=== PATIENT | male | born 1960 | race Caucasian/White ===

== ENCOUNTER 2016-12-11 18:08 | Inpatient (IN) | payer MEDICAID ==
[~2016-12-11] VITALS: Ht 180.3 cm; Wt 148.8 kg
[~2016-12-11 18:08] MED LIST: ACET500C38 PO; ALBU2.5V7 INH; CARV6.2554 PO; FURO-149 PO; FURO80TA3 PO; HYDR-3924 PO; IPRA0.2S6 INH; LISI10TA5 PO; METF1000 PO; MODA100T5 PO; POTA20TA83 PO; SPIR25TA PO; glipizide PO
[2016-12-11] MEDS ORDERED: NS 500 ML IV SCH (18:23)
[2016-12-11] MEDS ORDERED: ONDANSETRON HCL 4 MG/2 ML VIAL IVP ONE (18:30)
[2016-12-11] MEDS ORDERED: IPRATROPIUM/ALBUTEROL SULFATE 3 ML AMPUL.NEB INH ONE (18:30)
[2016-12-11] MEDS ORDERED: MORPHINE 4 MG/ML INJ. SYRINGE IVP ONE (18:30)
[2016-12-11 18:52] LABS: BASOPHILS # (AUTO) 0.1 K/uL (0.0-0.2); BASOPHILS % (AUTO) 0.5 % (0.0-2.0); EOSINOPHILS # (AUTO) 0.2 K/uL (0.0-0.4); HEMATOCRIT 39.7 % (36-54); LYMPHOCYTES # (AUTO) 2.2 K/uL (1.0-5.5); LYMPHOCYTES % (AUTO) 12.2 % (20.5-51.5); MEAN CORPUSCULAR HEMOGLOBIN 29 pg (27-31); MEAN CORPUSCULAR HGB CONC 33 % (32-36); MEAN CORPUSCULAR VOLUME 88 fL (79.0-98.0); MONOCYTES # (AUTO) 1.7 K/uL (0.0-1.0); MONOCYTES % (AUTO) 9.5 % (1.7-9.3); NEUTROPHILS # (AUTO) 13.6 K/uL (1.8-7.7); NEUTROPHILS % (AUTO) 76.8 % (40.0-70.0); PLATELET COUNT (AUTO) 286 K/uL (130-430); RED BLOOD CELL COUNT(AUTO) 4.49 MIL/uL (4.2-6.2); RED CELL DISTRIBUTION WIDTH 12.1 % (9.0-15.0); WHITE BLOOD COUNT (AUTO) 17.8 K/uL (4.8-10.8)
[2016-12-11 18:58] LABS: CALCIUM 9.3 mg/dL (8.4-11.0); CREATININE 1.24 mg/dL (0.55-1.30); POTASSIUM 4.2 mmol/L (3.5-5.1)
[2016-12-11 19:03] LABS: ALBUMIN 3.5 g/dL (3.4-4.8); TOTAL BILIRUBIN 0.7 mg/dL (0.0-1.0)
[2016-12-11 19:15] LABS: BLOOD GAS PH 7.329 (7.350-7.450)
[2016-12-11 19:16] LABS: ABG TOTAL HEMOGLOBIN 13.8 G/dL (12.0-18.0); BLOOD GAS BASE EXCESS -0.8 mmol/L (-3.0-3.0)
[2016-12-11 19:17] LABS: BLOOD GAS COHb% 0.9 % (0.5-1.5); BLOOD GAS HHB 16.3 % (0.0-6.0); BLOOD O2Hb% 82.3 % (94.0-97.0)
[2016-12-11] MEDS ORDERED: IOHEXOL 350 mgI/mL, 150 ML INFUS..BTL IV ONE (19:30)
[2016-12-11] MEDS ORDERED: methylPREDNISolone SOD SUCC/PF 62.5 MG/ML VIAL IVP ONE (19:30)
[2016-12-11] MEDS ORDERED: NACL 0.9% 1,000 ML IV ONE ×4 (19:45)
[2016-12-11] MEDS ORDERED: ALBMDI INH (19:50)
[2016-12-11] MEDS ORDERED: SPIRIVA INH (19:50)
[2016-12-11] MEDS ORDERED: LIP20 PO (19:50)
[2016-12-11] MEDS ORDERED: [UNRECOGNIZED DRUG - CODE] EACH EYE (19:50)
[2016-12-11] MEDS ORDERED: FLUT1DIS5 INH (19:50)
[2016-12-11] MEDS ORDERED: VITD2000 PO (19:50)
[2016-12-11] MEDS ORDERED: DORZ10DR8 EACH EYE (19:50)
[2016-12-11] MEDS ORDERED: GABA-531 PO (19:50)
[2016-12-11] MEDS ORDERED: DOCU-144 PO (19:50)
[2016-12-11] MEDS ORDERED: IPRATROPIUM BROM 0.5 MG/2.5 ML VIAL.NEB (ATROVENT) INH PRN (21:30)
[2016-12-11] MEDS ORDERED: ALBUTEROL SULFATE 0.083% 2.5 MG/3 ML VIAL.NEB INH PRN (21:30)
[2016-12-11 21:44] VITALS: BP_SYST 104
[2016-12-11] MEDS ORDERED: DEXTROSE 50% JECT 50 ML DISP.SYRIN IVP PRN (21:45)
[2016-12-11 21:52] VITALS: BP_SYST 103
[2016-12-11] MEDS ORDERED: PIPERACILLIN/TAZOBACTAM 3.375 GM/VIAL (ZOSYN) IV ONE (22:36)
[2016-12-11] MEDS: methylPREDNISolone SOD SUCC/PF 62.5 MG/ML VIAL IVP SCH (22:48)
[2016-12-11] MEDS: PIPERACILLIN/TAZO 3.375/DEX-IS 50 ML IV SCH (22:49)
[2016-12-11] MEDS: ALBUTEROL SULFATE 0.083% 2.5 MG/3 ML VIAL.NEB INH SCH (23:24)
[2016-12-11] MEDS: IPRATROPIUM BROM 0.5 MG/2.5 ML VIAL.NEB (ATROVENT) INH SCH (23:24)
[2016-12-12] MEDS: INSULIN REGULAR, HUMAN 100 UNITS/ML, 10 ML VIAL (novoLIN R) SUBCUT PRN ×3 (00:38→11:50)
[2016-12-12 01:34] VITALS: BP_SYST 112
[2016-12-12 03:00] VITALS: BP_SYST 115
[2016-12-12] MEDS: IPRATROPIUM BROM 0.5 MG/2.5 ML VIAL.NEB (ATROVENT) INH SCH ×3 (03:00→11:36)
[2016-12-12] MEDS: ALBUTEROL SULFATE 0.083% 2.5 MG/3 ML VIAL.NEB INH SCH ×3 (03:00→11:36)
[2016-12-12] MEDS: PIPERACILLIN/TAZO 3.375/DEX-IS 50 ML IV SCH ×2 (03:28→09:39)
[2016-12-12 04:00] VITALS: BP_SYST 100
[2016-12-12] MEDS: methylPREDNISolone SOD SUCC/PF 62.5 MG/ML VIAL IVP SCH ×2 (05:28→14:37)
[2016-12-12 08:00] VITALS: BP_SYST 112
[2016-12-12] MEDS: ENOXAPARIN SODIUM 40 MG/0.4 ML SYRINGE SUBCUT SCH ×2 (08:39→08:41)
[2016-12-12] MEDS: GABAPENTIN 300 MG CAPSULE PO SCH ×2 (08:40→14:37)
[2016-12-12] MEDS ORDERED: CARVEDILOL 6.25 MG TABLET (COREG) PO SCH (09:00)
[2016-12-12] MEDS ORDERED: TIOTROPIUM BROMIDE 18 mcg/INHALATION (CAPSULE) INH SCH (09:00)
[2016-12-12] MEDS ORDERED: POTASSIUM CHLORIDE 10 MEQ TAB.PRT.SR PO SCH (09:00)
[2016-12-12] MEDS ORDERED: DOCUSATE SODIUM 100 MG CAPSULE PO SCH (09:00)
[2016-12-12] MEDS ORDERED: LISINOPRIL 10 MG TABLET (PRINIVIL) PO SCH (09:00)
[2016-12-12] MEDS ORDERED: CHOLECALCIFEROL (VITAMIN D3) 2,000 UNIT TABLET PO SCH (09:00)
[2016-12-12] MEDS ORDERED: ATORVASTATIN 20 MG TABLET PO SCH (09:00)
[2016-12-12 12:10] VITALS: BP_SYST 136
[2016-12-12 14:55] VITALS: BP_SYST 136
== END 2016-12-12 16:00 | disposition short-term general hospital (02) | DRG 720 ==
LOC: SED 18:08 → STU 21:11
PROVIDERS: ADMIT Internal Medicine Hospice and Palliative Medicine; ATTEND Internal Medicine Hospice and Palliative Medicine
PROC: 5A09357 Assistance with Respiratory Ventilation, Less than 24 Consecutive Hours, Continuous Positive Airway Pressure (ICD-10-PCS; principal; 2016-12-12)
DX: A41.9 Sepsis, unspecified organism (principal); J96.21 Acute and chronic respiratory failure with hypoxia; J18.9 Pneumonia, unspecified organism; J44.1 Chronic obstructive pulmonary disease with (acute) exacerbation; I10 Essential (primary) hypertension; E11.9 Type 2 diabetes mellitus without complications; G47.33 Obstructive sleep apnea (adult) (pediatric); H54.41 Blindness, right eye, normal vision left eye; K80.20 Calculus of gallbladder without cholecystitis without obstruction; J44.0 Chronic obstructive pulmonary disease with (acute) lower respiratory infection; E66.9 Obesity, unspecified; Z99.81 Dependence on supplemental oxygen; Z79.899 Other long term (current) drug therapy; Z87.891 Personal history of nicotine dependence; Z68.42 Body mass index [BMI] 45.0-49.9, adult
CPT/HCPCS: 36415; 36600; 71010; 71275; 80053; 82803-TC; 82962; 83605; 83880; 84484; 85025; 87040-TC; 93005; 93306; 94640; 94660; 96361; 96365; 96375; 99291; J1650; J1815; J1956; J2270; J2405; J2543; J2930; J7030; J7040; J7060; Q9967

== ENCOUNTER 2022-08-01 12:59 | Inpatient (IN) | payer MEDICAID ==
[~2022-08-01] VITALS: Ht 182.9 cm; Wt 157.4 kg
[2022-08-01] VITALS (8 sets, daily range): BP systolic 88–120
[~2022-08-01 12:59] MED LIST changes: -ACET500C38 PO; +ALBMDI INH; -ALBU2.5V7 INH; +BRIM10DR12 EACH EYE; +DOCU-144 PO; +DORZ10DR9 EACH EYE; +ETOMIDATE 20 MG/ 10 ML VIAL (AMIDATE) ONE; +FLUT1DIS5 INH; -FURO-149 PO; -FURO80TA3 PO; +GABA-531 PO; -HYDR-3924 PO; -IPRA0.2S6 INH; +LIP20 PO; +LISI10TA29 PO; -LISI10TA5 PO; -MODA100T5 PO; +POTA-197 PO; -POTA20TA83 PO; +ROCURONIUM BROMIDE 10 MG/ML (ZEMURON) ONE; -SPIR25TA PO; +SPIRIVA INH; +VITD2000 PO
--- NOTE | 2022-08-01 12:59 | NUR ---
Placed in room 02 . Placed on medical education coordinator, blood pressure machine and pulse oximeter. To gown for exam. Side rails up. Report given to ISIDORO HARDY.
[2022-08-01] MEDS ORDERED: ETOMIDATE 20 MG/ 10 ML VIAL (AMIDATE) IVP ONE (13:00)
[2022-08-01] MEDS ORDERED: ROCURONIUM BROMIDE 10 MG/ML (ZEMURON) IV ONE (13:00)
--- NOTE | 2022-08-01 13:00 | NUR ---
Patient not known to be of DNR status.Respiratory therapy at bedside prior to placement. Size 7.5 ET tube placed by DR. ROLDAN. Cuff inflated with 10 cc air. Auscultation of breath sounds over bilateral chest wall. ET tube secured. O2 sats 99% pulse ox. PCXR ordered to check tube placement.
--- NOTE | 2022-08-01 13:00 | NUR ---
RECEIVED PT FROM ISIDORO MCGOWAN. KATJA ALS FOUND IN BED THIS MORNING NONRESPONSIVE. PT HAS WORSENING SOB AND ABDOMINAL DISTENTION X2 DAY. PARAMEDICS PLACED OGT AND BAG MASK PT PRIOR TO ARRIVAL. NORMAL S1S2 NOTED. ABDOMEN GROSSLY DISTENDED. NO BOWEL SOUNDS NOTED. SKIN INTACT. DISTAL PULSES NORMAL, SKIN WARM, INTACT. PT HAS RAC IV CATH PLACED IN FIELD. IV CATH TO LH 20G PLACED. SIDERAILS UP X2.
--- NOTE | 2022-08-01 13:05 | NUR ---
rt notes 1305 Pt got intubated by ED MD Lin, prior pt was bagged via 15L BVM. AC 20,550VT, PEEP 5, 100% FIO2. 7.5/24CM LL. CO2 detector color changed, Bilateral breath sounds heard. saturation gradually increased to 100%. will cont to monitor pt.
--- NOTE | 2022-08-01 13:08 | NUR ---
EKG COMPLETED. LABS OBTAINED.
[2022-08-01] MEDS ORDERED: IPRATROPIUM/ALBUTEROL SULFATE 3 ML AMPUL.NEB (DUONEB) INH ONE (13:15)
[2022-08-01] MEDS ORDERED: methylPREDNISolone SOD SUCC/PF 62.5 MG/ML VIAL IVP ONE (13:15)
[2022-08-01] MEDS ORDERED: PROPOFOL DRIP 100 ML IV ONE ×2 (13:30→16:51)
[2022-08-01 13:31] LABS: BASOPHILS # (AUTO) 0.1 K/uL (0.0-0.2); EOSINOPHILS # (AUTO) 0.4 K/uL (0.0-0.4); EOSINOPHILS % (AUTO) 3.1 % (0.0-4.0); HEMATOCRIT 43.7 % (36-54); LYMPHOCYTES # (AUTO) 2.5 K/uL (1.0-5.5); LYMPHOCYTES % (AUTO) 19.5 % (20.5-51.5); MEAN CORPUSCULAR HEMOGLOBIN 30 pg (27-31); MEAN CORPUSCULAR HGB CONC 32 % (32-36); MEAN CORPUSCULAR VOLUME 93 fL (79.0-98.0); MONOCYTES # (AUTO) 1.7 K/uL (0.0-1.0); MONOCYTES % (AUTO) 12.8 % (1.7-9.3); NEUTROPHILS # (AUTO) 8.3 K/uL (1.8-7.7); NEUTROPHILS % (AUTO) 63.6 % (40.0-70.0); PLATELET COUNT (AUTO) 275 K/uL (130-430); RED CELL DISTRIBUTION WIDTH 13.1 % (9.0-15.0)
[2022-08-01 13:47] LABS: CALCIUM 8.7 mg/dL (8.4-11.0); CHLORIDE 101 mmol/L (98-107); CREATININE 1.51 mg/dL (0.55-1.30); GLUCOSE 252 mg/dL (70-99); UREA NITROGEN, BLOOD 19 mg/dL (8-21)
[2022-08-01 13:54] LABS: ALANINE AMINOTRANSFERASE 18 U/L (12-78); ALBUMIN 3.3 g/dL (3.4-4.8); ASPARTATE AMINOTRANSFERASE 14 U/L (10-37); TOTAL BILIRUBIN 0.4 mg/dL (0.0-1.0)
[2022-08-01 13:59] LABS: GFR AFRICAN AMERICAN 61 mL/min (>90)
[2022-08-01 14:00] LABS: ANION GAP 0 (5-15)
--- NOTE | 2022-08-01 14:00 | NUR ---
REPORTED TO DR. ROLDAN PT'S CO2 43.
--- NOTE | 2022-08-01 14:00 | NUR ---
PT RECEIVING CXR AT THIS TIME. SCHEDULED MED SOLUMEDROL GIVEN. PROPOFOL 5MCG/KG/MIN INITIATED AT 5MCG/KG/MIN. WILL CONTINUE TO MONITOR AND TITRATE NEEDED.
--- NOTE | 2022-08-01 14:19 | NUR ---
MRSA AND PAXTON SWABS OBTAINED AND SENT TO LAB.
--- NOTE | 2022-08-01 14:30 | NUR ---
PT'S 3 YELLOW COLOR RINGS TAKEN OFF AND GIVEN TO .
[2022-08-01] MEDS ORDERED: cefTRIAXone 1 GM IVPB PREMIX 50 ML IV ONE (15:00)
--- NOTE | 2022-08-01 15:03 | NUR ---
PT BUCKING THE VENT, EYES OPEN, PROPOFOL INCREASED TO 35MG/KG/MIN. WILL CONTINUE TO MONITOR AND TITRATE INDICATED.
--- NOTE | 2022-08-01 15:03 | NUR ---
DR. ACUÑA AT BEDSIDE UPDATING PT'S SON.
[2022-08-01] MEDS ORDERED: NACL 0.9% 1,000 ML IV ONE (15:15)
--- NOTE | 2022-08-01 15:16 | NUR ---
REPORTED TO DR. ACUÑA, PT'S HYPOTENSIVE MAP 61. SHE STATED SHE WILL ORDER A BOLUS. 1000NS IV BOLUS INITIATED. ROCHEPHIN IVPB GIVEN. SON AT BEDSIDE. PROPOFOL TITRATED DOWN TO 30MCG/KG/MIN.
--- NOTE | 2022-08-01 15:17 | NUR ---
DR. LOWE AT THE BEDSIDE EXAMINING PT
[2022-08-01] MEDS ORDERED: FURO-150 PO (15:51)
[2022-08-01] MEDS ORDERED: FLUT1BLS14 INH (15:51)
[2022-08-01] MEDS ORDERED: ALBU90AE INH (15:51)
[2022-08-01] MEDS ORDERED: CANA100T PO (15:51)
[2022-08-01] MEDS ORDERED: ALLO100T PO (15:51)
[2022-08-01] MEDS ORDERED: LIP10 PO (15:51)
[2022-08-01] MEDS ORDERED: ERGO500020 PO (15:51)
[2022-08-01] MEDS ORDERED: COR25 PO (15:51)
[2022-08-01] MEDS ORDERED: HYDR-4497 PO (15:51)
[2022-08-01] MEDS ORDERED: OMEP-268 PO (15:51)
[2022-08-01] MEDS ORDERED: DOCU-159 PO (15:51)
[2022-08-01] MEDS ORDERED: AMLO10TA88 PO (15:51)
[2022-08-01] MEDS ORDERED: GLIP10TA21 PO (15:51)
[2022-08-01] MEDS ORDERED: TIOT4MIS5 INH (15:51)
[2022-08-01] MEDS ORDERED: DULA3PEN SQ (15:51)
[2022-08-01] MEDS ORDERED: GABA-331 PO (15:51)
--- NOTE | 2022-08-01 15:52 | NUR ---
MED REC COMPLETED.
--- NOTE | 2022-08-01 16:03 | NUR ---
Admit bed requested Patient will be admitted to care of . Admitted to ICU unit. Diagnosis PNEMONIA Inpatient (Yes or No) YES Observation (Yes or No) NO Orientation concerns or request close to nursing station (Yes or No) NO Covid Status NEGATIVE On vent or bipap NO Isolation requirements NONE Needs a sitter NO From Home (Yes or if No enter name of facility) YES Requires Dialysis (Yes or No) NO Med Rec Completed (Yes of No) YES
[2022-08-01] MEDS: 0.45% NACL 1,000 ML IV SCH (16:32)
--- NOTE | 2022-08-01 16:33 | NUR ---
1/2 NS INITIATED AT 100ML/HOUR.
--- NOTE | 2022-08-01 16:33 | NUR ---
# 16 FR Schmid catheter with use of sterile technique. Immediate return of 200 cc CLOUDY, BLOOD TINGED urine noted. Bedside drainage bag placed below level of bladder. Urine sample collected and sent to lab. Pt tolerated procedure WELL. .
[2022-08-01] MEDS: PANTOPRAZOLE SODIUM 40 MG/VIAL (PROTONIX) IVP SCH (16:55)
[2022-08-01] MEDS: PIPERACILLIN/TAZO 3.375 GM in NS 50 ML IV SCH (17:08)
--- NOTE | 2022-08-01 17:09 | NUR ---
ZOSYN IVPB GIVEN.
--- NOTE | 2022-08-01 17:24 | NUR ---
MRSA OBTAINED AND SENT TO LAB
--- NOTE | 2022-08-01 18:19 | NUR ---
REPORTED TO DR. MAC PT HAS ABDOMINAL DISTENTION, PT OGT ON INTERMITTENT SUCTION, 500 ML REMOVED WHEN OGT PLACED. PT ON PROPOFOL. RECEIVED ORDER FOR PROPOFOL DRIP, CT AB/PELVIS.
--- NOTE | 2022-08-01 19:13 | NUR ---
Patient will be admitted to care of ISIDORO MARTINEZ. Admitted to ICU unit. Will go to room 7. Belongings list completed. Complete and up to date summary report printed. SBAR report to be given at bedside with opportunity for questions. JUAN MADE AWARE THAT PT HAS NEW ORDER FOR PICC LINE PLACEMENT.
[2022-08-01 19:44] LABS: PROTHROMBIN TIME 9.9 SECS (9.5-12.5)
[2022-08-01] MEDS ORDERED: POTASSIUM CHLORIDE 20 MEQ/PKT PACKET PO ONE (20:15)
[2022-08-01] MEDS: METHYLPREDNISOLONE SOD SUCC 40 MG/ML VIAL IVP SCH (21:20)
[2022-08-01] MEDS: AZITHROMYCIN 250 MG in NS 250 ML IV SCH (21:20)
[2022-08-01] MEDS: PROPOFOL DRIP 100 ML IV PRN (22:06)
[2022-08-02] VITALS (31 sets, daily range): BP systolic 112–185
[2022-08-02] MEDS: PIPERACILLIN/TAZO 3.375 GM in NS 50 ML IV SCH ×5 (00:47→23:46)
[2022-08-02] MEDS: INSULIN LISPRO SLIDING SCALE 100 UNITS/ML, 3 ML VIAL (humaLOG) SUBCUT PRN ×4 (00:50→23:50)
[2022-08-02] MEDS: 0.45% NACL 1,000 ML IV SCH ×2 (03:24→13:05)
[2022-08-02] MEDS: METHYLPREDNISOLONE SOD SUCC 40 MG/ML VIAL IVP SCH ×3 (03:24→17:08)
[2022-08-02 06:18] LABS: BASOPHILS % (AUTO) 0.1 % (0.0-2.0); HEMATOCRIT 39.6 % (36-54); HEMOGLOBIN 13.2 g/dL (14.0-18.0); LYMPHOCYTES # (AUTO) 0.9 K/uL (1.0-5.5); MEAN CORPUSCULAR HEMOGLOBIN 30 pg (27-31); MEAN CORPUSCULAR HGB CONC 33 % (32-36); MEAN CORPUSCULAR VOLUME 91 fL (79.0-98.0); MONOCYTES # (AUTO) 0.5 K/uL (0.0-1.0); MONOCYTES % (AUTO) 4.3 % (1.7-9.3); NEUTROPHILS # (AUTO) 9.5 K/uL (1.8-7.7); NEUTROPHILS % (AUTO) 87.6 % (40.0-70.0); PLATELET COUNT (AUTO) 211 K/uL (130-430); RED BLOOD CELL COUNT(AUTO) 4.37 MIL/uL (4.2-6.2); RED CELL DISTRIBUTION WIDTH 12.8 % (9.0-15.0); WHITE BLOOD COUNT (AUTO) 10.8 K/uL (4.8-10.8)
[2022-08-02 06:29] LABS: CALCIUM 9.2 mg/dL (8.4-11.0); CREATININE 2.25 mg/dL (0.55-1.30)
--- NOTE | 2022-08-02 07:43 | NUR ---
RT NOTES FIO2 TO 0.40 per titration order, will notify RN.
--- NOTE | 2022-08-02 07:55 | NUR ---
Opening Note: Patient is a 62 year old male that was admitted to [place] on 08/01 for a CC: altered mentation status, patient was at home and went to dinner and did not put on BIPAP and became altered. He was intubated in E.D. DX: PNA. His abdomen was distended on admission, CT abdomen was done- diverticulosis, no obstruction, hepatic stenosis, cholithiasis. PMHX: sleep apnea, COPD, morbid obesity, DM, HTN, DM with diabetic vasculopathy, R- eye blindless with a possible chemical spill per on NOC shift, Dyslipidemia. LIZBETH PICC placed last night- intact, patent, dressing CDI. PIV: RAC20g, LH20g- intact, patent, dressing CDI. IVF: Propofol 40mcg, 1/2 NS 100cc/hr. Intubated with cough and gag present. NSR on tele monitor HR 94bmp. Vented: ACVC 24, 550, +5, 40%. No BM noted per noc. OGT in place to LIS- 200cc out per noc. Accuchecks q6h. Schmid in place and draining via gravity. No skin alterations noted. Restrained due to pulling at ETT tube. Will update daughter and PRN throughout shift.
[2022-08-02] MEDS: PROPOFOL DRIP 100 ML IV PRN ×6 (08:49→22:10)
--- NOTE | 2022-08-02 16:33 | NUR ---
MD renae rounds: Plan for tomorrow is to do a sedation vacation, with CPAP trials for one hour only, ABG after.
[2022-08-02] MEDS: PANTOPRAZOLE SODIUM 40 MG/VIAL (PROTONIX) IVP SCH (17:06)
[2022-08-02] MEDS: AZITHROMYCIN 250 MG in NS 250 ML IV SCH (17:08)
[2022-08-02] MEDS ORDERED: ENOXAPARIN SODIUM 40 MG/0.4 ML SYRINGE SUBCUT ONE (17:30)
[2022-08-02] MEDS: hydrALAZINE HCL 20 MG/ML VIAL IVP PRN (17:39)
--- NOTE | 2022-08-02 17:46 | NUR ---
Taryn STACY for HTN: BP >180's for the last 1.5 hours, Dr. Obey fritz, Dr. Evan fritz- clondine PRN, hydralazine PRN, norvac.
[2022-08-02] MEDS: IPRATROPIUM/ALBUTEROL SULFATE 3 ML AMPUL.NEB (DUONEB) INH SCH (20:56)
[2022-08-03] VITALS (33 sets, daily range): BP systolic 138–182
[2022-08-03] MEDS: PROPOFOL DRIP 100 ML IV PRN ×11 (00:20→23:37)
[2022-08-03] MEDS: METHYLPREDNISOLONE SOD SUCC 40 MG/ML VIAL IVP SCH ×3 (02:12→17:25)
[2022-08-03] MEDS: IPRATROPIUM/ALBUTEROL SULFATE 3 ML AMPUL.NEB (DUONEB) INH SCH ×6 (03:25→23:09)
[2022-08-03] MEDS: 0.45% NACL 1,000 ML IV SCH (04:15)
[2022-08-03] MEDS: INSULIN LISPRO SLIDING SCALE 100 UNITS/ML, 3 ML VIAL (humaLOG) SUBCUT PRN ×4 (05:29→23:57)
[2022-08-03] MEDS: PIPERACILLIN/TAZO 3.375 GM in NS 50 ML IV SCH ×4 (05:34→23:36)
[2022-08-03 06:07] LABS: BASOPHILS % (AUTO) 0.1 % (0.0-2.0); HEMATOCRIT 38.4 % (36-54); HEMOGLOBIN 12.6 g/dL (14.0-18.0); LYMPHOCYTES # (AUTO) 0.7 K/uL (1.0-5.5); LYMPHOCYTES % (AUTO) 4.6 % (20.5-51.5); MEAN CORPUSCULAR HEMOGLOBIN 30 pg (27-31); MEAN CORPUSCULAR HGB CONC 33 % (32-36); MEAN CORPUSCULAR VOLUME 90 fL (79.0-98.0); MONOCYTES # (AUTO) 0.7 K/uL (0.0-1.0); MONOCYTES % (AUTO) 4.5 % (1.7-9.3); NEUTROPHILS # (AUTO) 14.1 K/uL (1.8-7.7); NEUTROPHILS % (AUTO) 90.8 % (40.0-70.0); PLATELET COUNT (AUTO) 212 K/uL (130-430); RED BLOOD CELL COUNT(AUTO) 4.25 MIL/uL (4.2-6.2); RED CELL DISTRIBUTION WIDTH 13.3 % (9.0-15.0); WHITE BLOOD COUNT (AUTO) 15.5 K/uL (4.8-10.8)
[2022-08-03 06:21] LABS: CALCIUM 8.9 mg/dL (8.4-11.0); CREATININE 2.73 mg/dL (0.55-1.30)
--- NOTE | 2022-08-03 07:38 | NUR ---
RT NOTES Per order, vent to cpap 5 ps 10. pt is alert, educated on weaning trials. no immediate adverse reactions noted. B/P is elevated before start of cpap trial. pt is starting to get restless, kicking foot of the bed. will monito pt.
--- NOTE | 2022-08-03 07:44 | NUR ---
Opening Note: Patient is a 62 year old male that was admitted to [place] on 08/01 for a CC: altered mentation status, patient was at home and went to dinner and did not put on BIPAP and became altered. He was intubated in E.D. DX: PNA. His abdomen was distended on admission, CT abdomen was done- diverticulosis, no obstruction, hepatic stenosis, cholithiasis. PMHX: sleep apnea, COPD, morbid obesity, DM, HTN, DM with diabetic vasculopathy, R- eye blindless with a possible chemical spill per on NOC shift, Dyslipidemia. LIZBETH PICC placed last night- intact, patent, dressing CDI. PIV: RAC20g, LH20g- intact, patent, dressing CDI. IVF: Propofol 40mcg, 1/2 NS 100cc/hr.- OFF PROP, at 0729 for CPAP trials for one hour followed with ABG to report to Dr. Thompson. Intubated with cough and gag present. NSR on tele monitor HR 110bmp. Vented: ACVC 24, 550, +5, 35%. No BM noted per noc. OGT in place to LIS- no output per noc. Accuchecks q6h. Schmid in place and draining via gravity. No skin alterations noted. Restrained due to pulling at ETT tube. Will update daughter and PRN throughout shift, they sit at bedside throughout the day.
--- NOTE | 2022-08-03 08:00 | NUR ---
RT NOTES Dr Jay tejeda, ordered abg while on cpap. Stated ONCE pt is extubated, will need bipap 14/6 NOC and prn during days.
--- NOTE | 2022-08-03 08:12 | NUR ---
RT NOTES ABG drawn already. Called Rn to bedside due to Pt is starting to get really worked up, worsened when attempts of verbal encouragement between Rn and Rt. Rn turn sedation back on, vent back to AC.
--- NOTE | 2022-08-03 08:30 | NUR ---
Pulmo Rounds: Patient CPAP with Dr. Thompson at bedside when he rounded. Patient is awake from being off propofol within 5 minutes. Completed CPAP for one hour. Will attempt to try again tomorrow, patient went apneic, tachy. Will attempt CPAP trials again in AM.
[2022-08-03] MEDS: amLODIPine BESYLATE 5 MG TABLET JT SCH (08:45)
[2022-08-03] MEDS: ENOXAPARIN SODIUM 40 MG/0.4 ML SYRINGE SUBCUT SCH (08:45)
[2022-08-03] MEDS: PANTOPRAZOLE SODIUM 40 MG/VIAL (PROTONIX) IVP SCH (08:47)
[2022-08-03] MEDS: hydrALAZINE HCL 20 MG/ML VIAL IVP PRN (17:26)
[2022-08-03] MEDS: AZITHROMYCIN 250 MG in NS 250 ML IV SCH (17:26)
[2022-08-04] VITALS (32 sets, daily range): BP systolic 132–180
[2022-08-04] MEDS: PROPOFOL DRIP 100 ML IV PRN ×9 (01:22→23:41)
[2022-08-04] MEDS: METHYLPREDNISOLONE SOD SUCC 40 MG/ML VIAL IVP SCH ×3 (02:08→19:04)
[2022-08-04] MEDS: IPRATROPIUM/ALBUTEROL SULFATE 3 ML AMPUL.NEB (DUONEB) INH SCH ×6 (03:05→23:26)
[2022-08-04] MEDS: 0.45% NACL 1,000 ML IV SCH (03:28)
[2022-08-04] MEDS: PIPERACILLIN/TAZO 3.375 GM in NS 50 ML IV SCH ×3 (05:12→19:04)
[2022-08-04] MEDS: INSULIN LISPRO SLIDING SCALE 100 UNITS/ML, 3 ML VIAL (humaLOG) SUBCUT PRN (05:33)
[2022-08-04 06:18] LABS: CALCIUM 8.7 mg/dL (8.4-11.0); CREATININE 2.04 mg/dL (0.55-1.30)
[2022-08-04 06:23] LABS: HEMATOCRIT 37.3 % (36-54); HEMOGLOBIN 12.4 g/dL (14.0-18.0); LYMPHOCYTES # (AUTO) 0.6 K/uL (1.0-5.5); MEAN CORPUSCULAR HEMOGLOBIN 30 pg (27-31); MEAN CORPUSCULAR HGB CONC 33 % (32-36); MEAN CORPUSCULAR VOLUME 90 fL (79.0-98.0); MONOCYTES # (AUTO) 0.7 K/uL (0.0-1.0); MONOCYTES % (AUTO) 5.4 % (1.7-9.3); NEUTROPHILS # (AUTO) 10.9 K/uL (1.8-7.7); NEUTROPHILS % (AUTO) 89.6 % (40.0-70.0); PLATELET COUNT (AUTO) 188 K/uL (130-430); RED BLOOD CELL COUNT(AUTO) 4.13 MIL/uL (4.2-6.2); RED CELL DISTRIBUTION WIDTH 13.2 % (9.0-15.0); WHITE BLOOD COUNT (AUTO) 12.2 K/uL (4.8-10.8)
--- NOTE | 2022-08-04 07:06 | NUR ---
Assumed care of pt. Received report from ISIDORO Nevarez. Pt in no acute distress at this time. Care will be provided as ordered.
--- NOTE | 2022-08-04 07:15 | NUR ---
Patient is a 62 YO male that was admitted to [facility] on 08/01 r/t altered mentation status. Patient was at home, ate dinner and became altered. Pt uses CPAP machine at night. Pt was brought to ED and intubated with DX of PNA. Abdomen distended on admission. CT of ABD showed diverticulosis, no obstruction, hepatic stenosis, cholelithiasis. Pt has hx of sleep apnea, COPD, morbid obesity, DM with diabetic vasculopathy, HTN, R-eye blindless (possibly r/t chemical spill per ) and Dyslipidemia. LIZBETH PICC intact, patent, dressing CDI. PIV: RAC20g, LH20g- intact, patent, dressing CDI. IVF: Propofol 50mcg, 1/2 NS @50cc/hr. Intubated with cough and gag present. NSR on tele monitor HR 94bpm. Vent settings: ETT 7.5CM @27CM. AC @24, 550, 35%, 5.0. No BM noted per noc shift nurse. OGT in place to LIS- no output per noc shift. Accucheck q6h. Schmid in place and draining via gravity. No skin issues noted. Restrained due to pulling at ETT tube. Daughter and to be updated PRN throughout shift.
[2022-08-04] MEDS: PANTOPRAZOLE SODIUM 40 MG/VIAL (PROTONIX) IVP SCH (09:29)
[2022-08-04] MEDS: amLODIPine BESYLATE 5 MG TABLET JT SCH (09:32)
[2022-08-04] MEDS: ENOXAPARIN SODIUM 40 MG/0.4 ML SYRINGE SUBCUT SCH (09:33)
[2022-08-04] MEDS ORDERED: acetaZOLAMIDE 250 MG TABLET (DIAMOX) PO ONE (10:45)
[2022-08-04] MEDS: ALPRAZolam 0.25 MG TABLET PO SCH ×2 (14:22→20:34)
--- NOTE | 2022-08-04 15:09 | NUR ---
PT IS RESTLESS AND AGITATED DESPITE MAX DOSE OF PROP. THE ORDERED CPAP TRIAL WAS POSTPONED DUE TO PT AGITATION AND HYPERTENSION. MD NOTIFIED. PRECEDEX ADDED TO DECREASE AGITATION SYMPTOMS. MD NOTIFIED.
[2022-08-04] MEDS ORDERED: QUEtiapine FUMARATE 25 MG TABLET PO ONE (16:15)
[2022-08-04] MEDS ORDERED: LORazepam 2 MG/ML VIAL IVP ONE (16:15)
--- NOTE | 2022-08-04 18:00 | NUR ---
Dietitian Recommendations * Ordered: Vital AF @ 45 mL/hr (goal); Free water flush per MD via OGT Provides daily (+prop): 2593kcal (1296 EN), 81g PRO, 875mL FW Meets: 99% estimated kcal/day, 100% lower est PRO/day * Consider bowel regimen for no BM since admit * If/when patient extubated, consider GI soft diet for diverticulosis Please refer to nutrition assessment for details, thanks! Ju Mercer MPH, RDN
[2022-08-04] MEDS: AZITHROMYCIN 250 MG in NS 250 ML IV SCH (19:03)
[2022-08-04] MEDS: QUEtiapine FUMARATE 25 MG TABLET PO SCH (20:35)
[2022-08-05] VITALS (15 sets, daily range): BP systolic 127–170
[2022-08-05] MEDS: 0.45% NACL 1,000 ML IV SCH (00:27)
[2022-08-05] MEDS: PIPERACILLIN/TAZO 3.375 GM in NS 50 ML IV SCH ×4 (00:40→18:30)
[2022-08-05] MEDS: INSULIN LISPRO SLIDING SCALE 100 UNITS/ML, 3 ML VIAL (humaLOG) SUBCUT PRN ×2 (00:49→05:45)
[2022-08-05] MEDS: METHYLPREDNISOLONE SOD SUCC 40 MG/ML VIAL IVP SCH ×3 (02:10→18:33)
[2022-08-05] MEDS: PROPOFOL DRIP 100 ML IV PRN ×4 (02:10→08:44)
[2022-08-05] MEDS: IPRATROPIUM/ALBUTEROL SULFATE 3 ML AMPUL.NEB (DUONEB) INH SCH ×6 (03:02→23:13)
[2022-08-05 07:43] LABS: CALCIUM 8.3 mg/dL (8.4-11.0); CREATININE 1.72 mg/dL (0.55-1.30)
[2022-08-05 07:52] LABS: HEMATOCRIT 39.7 % (36-54); HEMOGLOBIN 13.3 g/dL (14.0-18.0); LYMPHOCYTES # (AUTO) 0.6 K/uL (1.0-5.5); LYMPHOCYTES % (AUTO) 5.7 % (20.5-51.5); MEAN CORPUSCULAR HEMOGLOBIN 30 pg (27-31); MEAN CORPUSCULAR HGB CONC 33 % (32-36); MEAN CORPUSCULAR VOLUME 90 fL (79.0-98.0); MONOCYTES # (AUTO) 0.5 K/uL (0.0-1.0); MONOCYTES % (AUTO) 5.4 % (1.7-9.3); NEUTROPHILS # (AUTO) 8.5 K/uL (1.8-7.7); NEUTROPHILS % (AUTO) 88.9 % (40.0-70.0); PLATELET COUNT (AUTO) 184 K/uL (130-430); RED BLOOD CELL COUNT(AUTO) 4.42 MIL/uL (4.2-6.2); RED CELL DISTRIBUTION WIDTH 13.3 % (9.0-15.0); WHITE BLOOD COUNT (AUTO) 9.6 K/uL (4.8-10.8)
--- NOTE | 2022-08-05 09:27 | NUR ---
0910 RN LOWERED SEDATION, CPAP5 PS10 TRIAL STARTED. HR91 RR15 SAT 92% WILL CONT TO MONITOR. RN AWARE. Addendum: 08/05/22 at 0929 by Johnna Correia RT Amended: Links added.
--- NOTE | 2022-08-05 10:46 | NUR ---
1030 PT PLACED BACK TO POST CPAP TRIAL. RN AWARE, WILL CONT T O MONITOR. Addendum: 08/05/22 at 1047 by Johnna Correia RT Amended: Links added.
[2022-08-05] MEDS: QUEtiapine FUMARATE 25 MG TABLET PO SCH ×2 (11:13→21:00)
[2022-08-05] MEDS: ALPRAZolam 0.25 MG TABLET PO SCH ×3 (11:14→21:00)
[2022-08-05] MEDS: acetaZOLAMIDE 250 MG TABLET (DIAMOX) PO SCH (11:15)
[2022-08-05] MEDS: amLODIPine BESYLATE 5 MG TABLET JT SCH (11:15)
[2022-08-05 11:16] LABS: CALCIUM 8.2 mg/dL (8.4-11.0); CREATININE 1.75 mg/dL (0.55-1.30); TOTAL BILIRUBIN 0.6 mg/dL (0.0-1.0)
[2022-08-05] MEDS: ENOXAPARIN SODIUM 40 MG/0.4 ML SYRINGE SUBCUT SCH (11:16)
[2022-08-05] MEDS: PANTOPRAZOLE SODIUM 40 MG/VIAL (PROTONIX) IVP SCH (11:16)
[2022-08-05 11:24] LABS: BILIRUBIN,URINE NEGATIVE (NEGATIVE); BLOOD, URINE NEGATIVE (NEGATIVE); CLARITY/URINE CLEAR (CLEAR); COLOR,URINE GREEN (YELLOW); GLUCOSE,URINE 3+ (NEGATIVE); KETONES,URINE TRACE (NEGATIVE); LEUKOCYTE ESTERASE ,URINE NEGATIVE (NEGATIVE); NITRITE, URINE NEGATIVE (NEGATIVE); PROTEIN URINE TRACE (NEGATIVE)
--- NOTE | 2022-08-05 12:26 | NUR ---
1220 PT EXTUBATED AND PLACED ON 4L OXYMIZER. SAT 95% RR15 HR 84. WILL CONT TO MONITOR. Addendum: 08/05/22 at 1227 by Johnna Correia RT Amended: Links added.
[2022-08-05 12:30] LABS: BACTERIA,URINE RARE /HPF (None Seen); MUCUS,URINE None Seen /LPF (None Seen); RBC,URINE 0-3 /HPF (0-3); WBC,URINE 0-3 /HPF (0-3)
--- NOTE | 2022-08-05 14:37 | NUR ---
1420 PT REFUSES BIPAP UNTIL THIS EVENING. NO DISTRESS NOTED. RN AWARE. Addendum: 08/05/22 at 1437 by Johnna Correia RT Amended: Links added.
[2022-08-05] MEDS: D5/0.45 NS 1,000 ML IV SCH (16:23)
[2022-08-05] MEDS: AZITHROMYCIN 250 MG in NS 250 ML IV SCH (18:32)
[2022-08-06] VITALS (10 sets, daily range): BP systolic 146–191
[2022-08-06] MEDS: PIPERACILLIN/TAZO 3.375 GM in NS 50 ML IV SCH ×4 (00:25→17:30)
[2022-08-06] MEDS: INSULIN LISPRO SLIDING SCALE 100 UNITS/ML, 3 ML VIAL (humaLOG) SUBCUT PRN ×3 (00:48→23:52)
[2022-08-06] MEDS: IPRATROPIUM/ALBUTEROL SULFATE 3 ML AMPUL.NEB (DUONEB) INH SCH ×6 (03:10→23:15)
[2022-08-06] MEDS: METHYLPREDNISOLONE SOD SUCC 40 MG/ML VIAL IVP SCH ×3 (04:02→17:36)
[2022-08-06] MEDS: hydrALAZINE HCL 20 MG/ML VIAL IVP PRN (04:20)
--- NOTE | 2022-08-06 08:12 | NUR ---
0810 placed pt on 2l nasal cannula. sat 94% hr96 rr19. rn aware, will cont to monitor. Addendum: 08/06/22 at 0816 by Johnna Correia RT Amended: Links added.
[2022-08-06] MEDS: ALPRAZolam 0.25 MG TABLET PO SCH ×3 (10:24→20:47)
[2022-08-06] MEDS: acetaZOLAMIDE 250 MG TABLET (DIAMOX) PO SCH (10:24)
[2022-08-06] MEDS: PANTOPRAZOLE SODIUM 40 MG/VIAL (PROTONIX) IVP SCH (10:25)
[2022-08-06] MEDS: ENOXAPARIN SODIUM 40 MG/0.4 ML SYRINGE SUBCUT SCH (10:25)
[2022-08-06] MEDS: QUEtiapine FUMARATE 25 MG TABLET PO SCH ×2 (10:26→20:47)
[2022-08-06] MEDS: amLODIPine BESYLATE 5 MG TABLET JT SCH (10:27)
[2022-08-06] MEDS: cloNIDine HCL 0.1 MG TABLET PO PRN (10:28)
[2022-08-06] MEDS: D5/0.45 NS 1,000 ML IV SCH (10:29)
--- NOTE | 2022-08-06 14:13 | NUR ---
CONSULTATION PAGED/CALLED Reason for Consultation: KAREN Person Who was Notified: Radha Consulting Physician: Lakshmi Kohler MD Inventory Technician Specialty: nephrology Ordering Physician: Rasta Barnhart MD
[2022-08-06 17:31] LABS: BASOPHILS % (AUTO) 0.1 % (0.0-2.0); HEMATOCRIT 43.3 % (36-54); HEMOGLOBIN 13.8 g/dL (14.0-18.0); LYMPHOCYTES # (AUTO) 0.6 K/uL (1.0-5.5); LYMPHOCYTES % (AUTO) 5.6 % (20.5-51.5); MEAN CORPUSCULAR HEMOGLOBIN 30 pg (27-31); MEAN CORPUSCULAR HGB CONC 32 % (32-36); MONOCYTES % (AUTO) 8.3 % (1.7-9.3); PLATELET COUNT (AUTO) 164 K/uL (130-430); RED BLOOD CELL COUNT(AUTO) 4.68 MIL/uL (4.2-6.2); RED CELL DISTRIBUTION WIDTH 13.5 % (9.0-15.0); WHITE BLOOD COUNT (AUTO) 11.7 K/uL (4.8-10.8)
[2022-08-06 17:32] LABS: MEAN CORPUSCULAR VOLUME 93 fL (79.0-98.0)
[2022-08-06 17:40] LABS: CALCIUM 8.3 mg/dL (8.4-11.0); CREATININE 1.83 mg/dL (0.55-1.30)
--- NOTE | 2022-08-06 18:02 | NUR ---
1740 PLACED PT ON BIPAP POST ABG RESULTS. PT AGREED, TOLERATING WELL, FACE GEL IN PLACE. SAT 97%. Addendum: 08/06/22 at 1807 by Johnna Correia RT Amended: Links added.
[2022-08-07] VITALS (25 sets, daily range): BP systolic 130–178
[2022-08-07] MEDS: PIPERACILLIN/TAZO 3.375 GM in NS 50 ML IV SCH ×4 (00:03→18:18)
[2022-08-07] MEDS: METHYLPREDNISOLONE SOD SUCC 40 MG/ML VIAL IVP SCH ×3 (02:45→18:22)
[2022-08-07] MEDS: IPRATROPIUM/ALBUTEROL SULFATE 3 ML AMPUL.NEB (DUONEB) INH SCH ×6 (03:00→22:56)
[2022-08-07] MEDS: D5/0.45 NS 1,000 ML IV SCH (06:12)
[2022-08-07] MEDS: INSULIN LISPRO SLIDING SCALE 100 UNITS/ML, 3 ML VIAL (humaLOG) SUBCUT PRN ×2 (06:13→18:20)
[2022-08-07 06:39] LABS: HEMATOCRIT 41.8 % (36-54); HEMOGLOBIN 13.6 g/dL (14.0-18.0); LYMPHOCYTES # (AUTO) 0.4 K/uL (1.0-5.5); LYMPHOCYTES % (AUTO) 4.7 % (20.5-51.5); MEAN CORPUSCULAR HEMOGLOBIN 30 pg (27-31); MEAN CORPUSCULAR HGB CONC 33 % (32-36); MEAN CORPUSCULAR VOLUME 92 fL (79.0-98.0); MONOCYTES # (AUTO) 0.8 K/uL (0.0-1.0); MONOCYTES % (AUTO) 8.4 % (1.7-9.3); NEUTROPHILS # (AUTO) 8.2 K/uL (1.8-7.7); NEUTROPHILS % (AUTO) 86.9 % (40.0-70.0); PLATELET COUNT (AUTO) 174 K/uL (130-430); RED BLOOD CELL COUNT(AUTO) 4.56 MIL/uL (4.2-6.2); RED CELL DISTRIBUTION WIDTH 13.5 % (9.0-15.0); WHITE BLOOD COUNT (AUTO) 9.4 K/uL (4.8-10.8)
[2022-08-07 06:53] LABS: CALCIUM 8.5 mg/dL (8.4-11.0); CREATININE 1.74 mg/dL (0.55-1.30)
--- NOTE | 2022-08-07 07:57 | NUR ---
RT NOTES Took pt off bipap and placed on 2L O2. Pt stated, he has home O2, 2L.
--- NOTE | 2022-08-07 08:00 | NUR ---
RT NOTES Dr Angel tejeda now, aware pt was just taken off bipap
--- NOTE | 2022-08-07 09:02 | NUR ---
RT NOTES BIPAP to IPAP 14, BUR [address] Ortiz's order via charge nurse Aman.
--- NOTE | 2022-08-07 09:07 | NUR ---
RT NOTES FIO2 TO 0.35 per titration order.
[2022-08-07] MEDS: PANTOPRAZOLE SODIUM 40 MG/VIAL (PROTONIX) IVP SCH (09:33)
[2022-08-07] MEDS: ENOXAPARIN SODIUM 40 MG/0.4 ML SYRINGE SUBCUT SCH (09:34)
[2022-08-07] MEDS: amLODIPine BESYLATE 5 MG TABLET JT SCH (09:34)
[2022-08-07] MEDS: QUEtiapine FUMARATE 25 MG TABLET PO SCH (09:36)
[2022-08-07] MEDS: acetaZOLAMIDE 250 MG TABLET (DIAMOX) PO SCH (09:36)
--- NOTE | 2022-08-07 12:24 | NUR ---
pt family at bedside requestingto speak to show worker. social services analyst not availble at this time. family notified amd stated [facility]
--- NOTE | 2022-08-07 14:24 | NUR ---
pt confused and removing bipap machine. pt stating we are trying to kill him. reassured that machine is helping him to breath.
[2022-08-08] VITALS (23 sets, daily range): BP systolic 120–192
[2022-08-08] MEDS: PIPERACILLIN/TAZO 3.375 GM in NS 50 ML IV SCH (00:42)
[2022-08-08] MEDS: METHYLPREDNISOLONE SOD SUCC 40 MG/ML VIAL IVP SCH ×3 (02:35→17:25)
[2022-08-08] MEDS: IPRATROPIUM/ALBUTEROL SULFATE 3 ML AMPUL.NEB (DUONEB) INH SCH ×6 (03:01→23:00)
[2022-08-08] MEDS: D5/0.45 NS 1,000 ML IV SCH ×2 (04:30→22:15)
[2022-08-08] MEDS: hydrALAZINE HCL 20 MG/ML VIAL IVP PRN ×2 (06:19→12:47)
[2022-08-08 06:57] LABS: CALCIUM 8.7 mg/dL (8.4-11.0); CREATININE 1.62 mg/dL (0.55-1.30)
--- NOTE | 2022-08-08 07:23 | NUR ---
Opening Note: Patient is a 62 year old male that was admitted to [place] on 08/01 for a CC: altered mentation status, patient was at home and went to dinner and did not put on BIPAP and became altered. He was intubated in E.D. DX: PNA. His abdomen was distended on admission, CT abdomen was done- diverticulosis, no obstruction, hepatic stenosis, cholithiasis. PMHX: sleep apnea, COPD, morbid obesity, DM, HTN, DM with diabetic vasculopathy, R- eye blindless with a possible chemical spill per on NOC shift, Dyslipidemia. LIZBETH PICC- intact, patent, dressing CDI. IVF: 07/24 NS 50cc/hr. Extubated 08/05 to Bipap. On Bipap at this time (IPAP 16, rate: 25 +5, fio2 35%)- pending ABG this am to depict CO2 level. NSR on tele monitor HR 109bmp. No BM noted per noc. Bridged to full liquid diet. Accuchecks q6h. Schmid in place and draining via gravity. No skin alterations noted. Will update daughter and PRN throughout shift, they sit at bedside throughout the day, yesterday per report they were requesting to speak to CM and SS. Addendum: 08/08/22 at 0739 by Rodrigo Lubin RN RN Mental Status: Alert and oriented x1- confused. Able to follow simple commands.
[2022-08-08 07:47] LABS: BASOPHILS % (AUTO) 0.1 % (0.0-2.0); EOSINOPHILS # (AUTO) 0.1 K/uL (0.0-0.4); EOSINOPHILS % (AUTO) 0.5 % (0.0-4.0); HEMATOCRIT 44.5 % (36-54); HEMOGLOBIN 14.2 g/dL (14.0-18.0); LYMPHOCYTES # (AUTO) 0.6 K/uL (1.0-5.5); MEAN CORPUSCULAR HEMOGLOBIN 30 pg (27-31); MEAN CORPUSCULAR HGB CONC 32 % (32-36); MEAN CORPUSCULAR VOLUME 94 fL (79.0-98.0); NEUTROPHILS # (AUTO) 10.7 K/uL (1.8-7.7); NEUTROPHILS % (AUTO) 86.4 % (40.0-70.0); PLATELET COUNT (AUTO) 177 K/uL (130-430); RED BLOOD CELL COUNT(AUTO) 4.74 MIL/uL (4.2-6.2); RED CELL DISTRIBUTION WIDTH 13.5 % (9.0-15.0); WHITE BLOOD COUNT (AUTO) 12.3 K/uL (4.8-10.8)
[2022-08-08] MEDS: PANTOPRAZOLE SODIUM 40 MG/VIAL (PROTONIX) IVP SCH (08:01)
[2022-08-08] MEDS: acetaZOLAMIDE 250 MG TABLET (DIAMOX) PO SCH (08:02)
[2022-08-08] MEDS: ENOXAPARIN SODIUM 40 MG/0.4 ML SYRINGE SUBCUT SCH (08:02)
[2022-08-08] MEDS: amLODIPine BESYLATE 5 MG TABLET JT SCH (08:03)
--- NOTE | 2022-08-08 08:50 | NUR ---
Kevinms Rounds: Dr. Ortiz rounded- could get reintubated based on new ABG. He is having issues blowing off CO2. Plan is to put on HF for a couple hours, feed him, then back to BIPAP. ABG in am again tomorrow. Addendum: 08/08/22 at 0936 by [employer], ISIDORO CHAUDHRY Patient placed to HF 30L at 35% @0910 Patient pulled up in bed, ate one bite of oatmeal, and drank ensure. Took medications PO crushed.
--- NOTE | 2022-08-08 09:10 | NUR ---
RT NOTES Pt to HFNC per Dr's order. 30L 35%. Pt was educated on HF & deep breathing via nose. Will monitor pt.
--- NOTE | 2022-08-08 10:09 | NUR ---
Nutrition F/U RD reviewed pts current EMR including diet hx, physician notes, nursing notes, pertinent labs/meds/procedures, care trends and care activity. Short note d/t high workload Medical History Comment: Per EMR: 62y male with PMHx sleep apnea w/CPAP, COPD, morbid obesity, DM, HTN, R-eye blindless (possibly r/t chemical spill per ) and dyslipidemia who presented to ED for AMS. Patient intubated in ED. After assessment, pt found with pneumonia. S/p abd CT revealed diverticulosis. 08/05: pt extubated @ [address] attended ICU rounds and s/w primary RN regarding pt. RN said pt is receiving D5W @ 50 mL/hr (provides 204 kcal). Pt was recently extubated and is alternating between Bipap and Hi-flow. RN said pt is not tolerating very well and could be re-intubated if condition worsens. RD asked about PO intake, since there is none documented and she was not sure because she had not fed him yet. RN said no BM last night and she is not sure about before then. Pt has no skin issues at this time. Also, RN said pt had head CT scan and it was negative. Pt is likely not meeting nutritional needs at this time. Current Diet Order/Nutrition Support Full liquid x 2 days % PO intake None documented Last BM None documented NEW Estimated Energy Expenditure (kcals/day) 6083-0539 kcal (25-30 kcal/kg ABW(102 kg) d/t BMI, critical illness) NEW Estimated Protein Required (g/day) 82-102 (.8-1g/kg ABW for vent, renal labs) Estimated Fluid Required (l/day) Per physician d/t renal labs Dietitian Recommendations * Recommend advance to GI soft diet, when medically appropriate * Consider bowel regimen as for no BM documented since admit * If pt becomes intubated again, please contact RD to re-assess needs Follow up High risk: f/u in 2-3 days CHER, MPH, RD
--- NOTE | 2022-08-08 10:11 | NUR ---
Dietitian Recommendations * Recommend advance to GI soft diet, when medically appropriate * Consider bowel regimen as for no BM documented since admit * If pt becomes intubated again, please contact RD to re-assess needs GS, MPH, RD Please refer to Nutrition F/U for further details. Thanks!
[2022-08-08] MEDS: METOPROLOL TARTRATE 50 MG TABLET PO ONE ×2 (11:15→12:27)
--- NOTE | 2022-08-08 11:45 | NUR ---
RT NOTES Pt back on BIPAP due to signs of hypercapnia, per and son he's not usually confused. Pt and family were educated on possible elevated CO2 due to confusion.
[2022-08-08] MEDS: INSULIN LISPRO SLIDING SCALE 100 UNITS/ML, 3 ML VIAL (humaLOG) SUBCUT PRN ×2 (12:39→17:31)
--- NOTE | 2022-08-08 13:50 | NUR ---
RT NOTES Despite constant re-education, pt keeps pulling on mask large leak noted. Changed to space mask, re-educated on keeping mask as is,to keep seal. will monitor pt.
--- NOTE | 2022-08-08 15:25 | NUR ---
RT NOTES Pt pulled off bipap mask, non-compliant. placed on 30L 35% HFNC. Willl monitor pt.
--- NOTE | 2022-08-08 16:00 | NUR ---
RT NOTES FIO2 TO 0.30. RN AWARE.
--- NOTE | 2022-08-08 19:05 | NUR ---
Report received from ISIDORO Dai. IVF: D5.45 infusing at 50 ml/hr.
[2022-08-08] MEDS: METOPROLOL TARTRATE 50 MG TABLET PO SCH (21:08)
--- NOTE | 2022-08-08 21:30 | NUR ---
RT at bedside. Patient placed on Bi-PAP with settings: FiO2 356% Rated 20 14/5.
--- NOTE | 2022-08-08 23:00 | NUR ---
Patient has removed Bi-PAp tubing and/or mask multiple time. Non-Behavioral soft restraints applied to BW.
[2022-08-09] VITALS (43 sets, daily range): BP systolic 104–191
--- NOTE | 2022-08-09 00:01 | NUR ---
Accu 'check 269 mg/dl. Patient covered with Humulog 6 units SQ.
[2022-08-09] MEDS: INSULIN LISPRO SLIDING SCALE 100 UNITS/ML, 3 ML VIAL (humaLOG) SUBCUT PRN ×4 (00:02→23:29)
[2022-08-09] MEDS: hydrALAZINE HCL 20 MG/ML VIAL IVP PRN ×2 (00:57→05:16)
--- NOTE | 2022-08-09 00:57 | NUR ---
BP 201/85. Patient medicated with Hydralazine 10 mg IVP.
[2022-08-09] MEDS: D5/0.45 NS 1,000 ML IV SCH (01:55)
[2022-08-09] MEDS: cloNIDine HCL 0.1 MG TABLET PO PRN (01:56)
[2022-08-09] MEDS: METHYLPREDNISOLONE SOD SUCC 40 MG/ML VIAL IVP SCH ×3 (02:23→17:20)
[2022-08-09] MEDS: IPRATROPIUM/ALBUTEROL SULFATE 3 ML AMPUL.NEB (DUONEB) INH SCH ×6 (03:00→23:15)
--- NOTE | 2022-08-09 05:16 | NUR ---
BP 161/91. Patient medicated with Hydralazine 10 mg IVP.
--- NOTE | 2022-08-09 05:43 | NUR ---
Factory Process Workers at bedside. AM labs obtained and specimens sent to lab.
--- NOTE | 2022-08-09 05:50 | NUR ---
RT at bedside and changes O2 delivery to Hi-Dipak O2 30 L/M and 30%. Soft Restraints removed.
--- NOTE | 2022-08-09 06:07 | NUR ---
Accu Check 127 mg/dl. No coverage required.
--- NOTE | 2022-08-09 06:40 | NUR ---
Patient's Rachel called at [phone] and updated Rachel with shift events and POC. All questions answered. No further questions at this time.
[2022-08-09 06:47] LABS: BASOPHILS % (AUTO) 0.1 % (0.0-2.0); EOSINOPHILS % (AUTO) 0.3 % (0.0-4.0); HEMATOCRIT 41.1 % (36-54); HEMOGLOBIN 13.4 g/dL (14.0-18.0); LYMPHOCYTES # (AUTO) 1.4 K/uL (1.0-5.5); MEAN CORPUSCULAR HEMOGLOBIN 30 pg (27-31); MEAN CORPUSCULAR HGB CONC 33 % (32-36); MEAN CORPUSCULAR VOLUME 92 fL (79.0-98.0); MONOCYTES # (AUTO) 2.3 K/uL (0.0-1.0); MONOCYTES % (AUTO) 18.2 % (1.7-9.3); NEUTROPHILS % (AUTO) 70.4 % (40.0-70.0); PLATELET COUNT (AUTO) 192 K/uL (130-430); RED BLOOD CELL COUNT(AUTO) 4.49 MIL/uL (4.2-6.2); RED CELL DISTRIBUTION WIDTH 13.3 % (9.0-15.0); WHITE BLOOD COUNT (AUTO) 12.8 K/uL (4.8-10.8)
--- NOTE | 2022-08-09 07:16 | NUR ---
Care endorsed to ISIDORO Vaughn. Addendum: 08/09/22 at 0718 by [employer], ISIDORO CHAUDHRY CORRECTION: Care endorsed to ISIDORO Jiménez
--- NOTE | 2022-08-09 07:30 | NUR ---
Opening Note: Patient is a 62 year old male that was admitted to [place] on 08/01 for a CC: altered mentation status, patient was at home and went to dinner and did not put on BIPAP and became altered. He was intubated in E.D on 08/01, extubated 08/05. DX: PNA. His abdomen was distended on admission, CT abdomen was done- diverticulosis, no obstruction, hepatic stenosis, cholithiasis. PMHX: sleep apnea, COPD, morbid obesity, DM, HTN, DM with diabetic vasculopathy, R- eye blindless with a possible chemical spill per on NOC shift, Dyslipidemia. LIZBETH PICC- intact, patent, dressing CDI. IVF: 07/24 NS 50cc/hr. Extubated 08/05 to Bipap. Was on bipap over night HF this am at 0610 per noc shift (30L @30%)- pending ABG this am to depict CO2 level. NSR on tele monitor HR 110bmp. No BM noted per noc. Bridged to full liquid diet. Accuchecks q6h. Schmid in place and draining via gravity. No skin alterations noted. Will update daughter and PRN throughout shift, they sit at bedside throughout the day.
[2022-08-09 08:27] LABS: CALCIUM 8.7 mg/dL (8.4-11.0); CREATININE 1.55 mg/dL (0.55-1.30)
--- NOTE | 2022-08-09 08:55 | NUR ---
RT NOTES Pt was hyperoxygenated with 100% O2 via resus bag to mask before intubation. Intubated by Dr Ortiz with 8.0 ETT secured at 24.5cm. CO2 indicator changed to yellow, bilateral b/s/chest rise noted. Pt to vent ac 20 550 Peep [address]%. [address] Ortiz did bronchoscopy right after intubation, stated there were mucus plugs in left bronchus, which she felt she cleared up. Sputum collected during procedure. Alarms are set and audible at nurse's station, resus. bag at bedside. Vent to red outlet. Will monitor pt.
--- NOTE | 2022-08-09 08:55 | NUR ---
Intubation note: Patient was found this AM altered LOC, attempting to get out of bed on HF. When Dr. Ortiz rounded we did a Stat ABG- Pco2 was in the 50's, so we proceeded with intubation. Medications: Etomidate 20mg, Rocc 50mg- given for intubation. ETT: 7.5/24cm Vent: AC20, 550, +5, 100%- reported ABG to Angel. New vent settings: AC 20, 550,+5, 60% Bronchoscopy was done s/p intubation- cultures sent, consented. also called prior to intubation and was agreeable with plan of care. IVF: Propofol at 40mcg, Versed at 1mg
[2022-08-09] MEDS: amLODIPine BESYLATE 5 MG TABLET JT SCH (09:00)
[2022-08-09] MEDS: METOPROLOL TARTRATE 50 MG TABLET PO SCH ×2 (09:00→21:12)
[2022-08-09] MEDS: ENOXAPARIN SODIUM 40 MG/0.4 ML SYRINGE SUBCUT SCH (09:48)
[2022-08-09] MEDS: PANTOPRAZOLE SODIUM 40 MG/VIAL (PROTONIX) IVP SCH (09:50)
[2022-08-09] MEDS: acetaZOLAMIDE 250 MG TABLET (DIAMOX) PO SCH (09:50)
[2022-08-09] MEDS: MIDAZOLAM IN NACL,ISO-OSMOT/PF 100 ML IV PRN (09:54)
[2022-08-09] MEDS ORDERED: NOREPINEPHRINE BITARTRATE 32 MG in D5W 218 ML IV PRN (10:00)
--- NOTE | 2022-08-09 10:23 | NUR ---
Spoke with Vivien at doctors office requesting orders from Dr. Ortiz.
[2022-08-09] MEDS: PROPOFOL DRIP 100 ML IV PRN ×5 (11:16→22:50)
--- NOTE | 2022-08-09 15:52 | NUR ---
RT NOTES FIO2 TO 0.40 PER TITRATION ORDER. WILL NOTIFY RN.
--- NOTE | 2022-08-09 19:00 | NUR ---
Report received from ISIDORO Jiménez. Patient intubated with ETT 8.0 at 24 CM L/L to vent. Vent settings: AC 20 Vt 550 FiO2 40%. IVF: D5.45 infusing at 50 ml/hr; Propofol drip infusing at 30 mcg/kg/min; and, Versed drip infusing at 3 mg/hr. RASS -3. Will continue to monitor VS, RASS, & clinical status.
--- NOTE | 2022-08-09 23:31 | NUR ---
Accu check 186 mg/dl. Patient covered with Humulog 2 units SQ.
[2022-08-10] VITALS (50 sets, daily range): BP systolic 105–160
--- NOTE | 2022-08-10 00:25 | NUR ---
Patient incontinent with stool, soft brown pasty ena-formed stool. Patient bed bath and linen change given.
[2022-08-10] MEDS: D5/0.45 NS 1,000 ML IV SCH ×2 (00:30→17:41)
[2022-08-10] MEDS: PROPOFOL DRIP 100 ML IV PRN ×7 (02:14→21:57)
[2022-08-10] MEDS: METHYLPREDNISOLONE SOD SUCC 40 MG/ML VIAL IVP SCH ×3 (02:25→17:53)
[2022-08-10] MEDS: IPRATROPIUM/ALBUTEROL SULFATE 3 ML AMPUL.NEB (DUONEB) INH SCH ×6 (03:10→23:10)
--- NOTE | 2022-08-10 05:15 | NUR ---
Front Desk Receptionist at bedside. AM labs obtained and specimens sent to lab.
[2022-08-10] MEDS: INSULIN LISPRO SLIDING SCALE 100 UNITS/ML, 3 ML VIAL (humaLOG) SUBCUT PRN ×3 (05:49→17:53)
--- NOTE | 2022-08-10 05:52 | NUR ---
Accu check 192 mg/dl. Patient covered with Humulog 2 units SQ.
--- NOTE | 2022-08-10 06:29 | NUR ---
Patient's Rachel called at [phone] and gave updated shift events (benign) and POC. All questions answered. No further questions at this time.
[2022-08-10 06:52] LABS: BASOPHILS % (AUTO) 0.1 % (0.0-2.0); EOSINOPHILS % (AUTO) 0.3 % (0.0-4.0); HEMATOCRIT 38.3 % (36-54); HEMOGLOBIN 12.5 g/dL (14.0-18.0); LYMPHOCYTES # (AUTO) 0.7 K/uL (1.0-5.5); LYMPHOCYTES % (AUTO) 5.1 % (20.5-51.5); MEAN CORPUSCULAR HEMOGLOBIN 30 pg (27-31); MEAN CORPUSCULAR HGB CONC 33 % (32-36); MEAN CORPUSCULAR VOLUME 92 fL (79.0-98.0); MONOCYTES # (AUTO) 1.1 K/uL (0.0-1.0); MONOCYTES % (AUTO) 8.9 % (1.7-9.3); NEUTROPHILS # (AUTO) 11.1 K/uL (1.8-7.7); NEUTROPHILS % (AUTO) 85.6 % (40.0-70.0); PLATELET COUNT (AUTO) 146 K/uL (130-430); RED BLOOD CELL COUNT(AUTO) 4.16 MIL/uL (4.2-6.2); RED CELL DISTRIBUTION WIDTH 13.2 % (9.0-15.0); WHITE BLOOD COUNT (AUTO) 12.9 K/uL (4.8-10.8)
[2022-08-10 07:15] LABS: ALBUMIN 2.8 g/dL (3.4-4.8); CREATININE 1.88 mg/dL (0.55-1.30); TOTAL BILIRUBIN 0.6 mg/dL (0.0-1.0)
--- NOTE | 2022-08-10 07:20 | NUR ---
Care endorsed to ISIDORO Vaughn.
--- NOTE | 2022-08-10 07:35 | NUR ---
Care endorsed to ISIDORO Nieves.
[2022-08-10 07:49] LABS: CALCIUM 8.6 mg/dL (8.4-11.0)
--- NOTE | 2022-08-10 08:11 | NUR ---
RECEIVED PT FROM NIGHT RN, PT IS SEDATED , CURRENT VITALS ARE 141/81, HR 81 RR 20 NO FEVER TEMP WAS 97.0.9. PT IS ON VENT SETTING ARE AC 20, TV 550, FIO2 40% PEEP 5. WILL CONT TO MONITOR.
[2022-08-10] MEDS: ENOXAPARIN SODIUM 40 MG/0.4 ML SYRINGE SUBCUT SCH (08:41)
[2022-08-10] MEDS: PANTOPRAZOLE SODIUM 40 MG/VIAL (PROTONIX) IVP SCH (08:41)
[2022-08-10] MEDS: METOPROLOL TARTRATE 50 MG TABLET PO SCH ×2 (08:42→21:41)
[2022-08-10] MEDS: acetaZOLAMIDE 250 MG TABLET (DIAMOX) PO SCH (08:42)
[2022-08-10] MEDS: amLODIPine BESYLATE 5 MG TABLET JT SCH (08:42)
--- NOTE | 2022-08-10 09:28 | NUR ---
DR PERALTA HERE AND SEEN PT. NEW ORDERS GIVEN. PLAN TO WEAN TRIAL IN AM AND START TUBE FEEDING TODAY. NEW ORDERS GIVEN.
--- NOTE | 2022-08-10 12:37 | NUR ---
PT'S SPOUSE AND DTR AT BEDSIDE. THEY WERE UPDATED WITH PT'S STATUS AND POC. IE, STARTED ON TUBE FEEDING AND WEANING TREIALS IN AM PER DR PERALTA.
[2022-08-10] MEDS: MIDAZOLAM IN NACL,ISO-OSMOT/PF 100 ML IV PRN (17:49)
--- NOTE | 2022-08-10 18:52 | NUR ---
Pt has been stable the whole shift. no untoward incident. vitals wnl, no fever. continued to be on vent, same settings. continued to be on versed and diprivan drips. will endorse to night nurse.
[2022-08-11] VITALS (33 sets, daily range): BP systolic 135–157
[2022-08-11] MEDS: PROPOFOL DRIP 100 ML IV PRN ×6 (01:02→22:20)
[2022-08-11] MEDS: INSULIN LISPRO SLIDING SCALE 100 UNITS/ML, 3 ML VIAL (humaLOG) SUBCUT PRN ×4 (01:43→18:10)
[2022-08-11] MEDS: METHYLPREDNISOLONE SOD SUCC 40 MG/ML VIAL IVP SCH ×3 (02:42→18:01)
[2022-08-11] MEDS: IPRATROPIUM/ALBUTEROL SULFATE 3 ML AMPUL.NEB (DUONEB) INH SCH ×6 (03:07→23:25)
[2022-08-11 06:41] LABS: BASOPHILS % (AUTO) 0.1 % (0.0-2.0); EOSINOPHILS % (AUTO) 0.1 % (0.0-4.0); HEMATOCRIT 36.4 % (36-54); LYMPHOCYTES # (AUTO) 0.4 K/uL (1.0-5.5); LYMPHOCYTES % (AUTO) 4.5 % (20.5-51.5); MEAN CORPUSCULAR HEMOGLOBIN 30 pg (27-31); MEAN CORPUSCULAR HGB CONC 33 % (32-36); MEAN CORPUSCULAR VOLUME 92 fL (79.0-98.0); MONOCYTES # (AUTO) 0.9 K/uL (0.0-1.0); MONOCYTES % (AUTO) 9.3 % (1.7-9.3); NEUTROPHILS # (AUTO) 8.1 K/uL (1.8-7.7); PLATELET COUNT (AUTO) 117 K/uL (130-430); RED BLOOD CELL COUNT(AUTO) 3.95 MIL/uL (4.2-6.2); RED CELL DISTRIBUTION WIDTH 13.2 % (9.0-15.0); WHITE BLOOD COUNT (AUTO) 9.5 K/uL (4.8-10.8)
[2022-08-11 07:07] LABS: CALCIUM 8.1 mg/dL (8.4-11.0); CREATININE 2.23 mg/dL (0.55-1.30)
[2022-08-11] MEDS: ENOXAPARIN SODIUM 40 MG/0.4 ML SYRINGE SUBCUT SCH (08:11)
[2022-08-11] MEDS: amLODIPine BESYLATE 5 MG TABLET JT SCH (08:11)
[2022-08-11] MEDS: PANTOPRAZOLE SODIUM 40 MG/VIAL (PROTONIX) IVP SCH (08:11)
[2022-08-11] MEDS: METOPROLOL TARTRATE 50 MG TABLET PO SCH ×2 (08:12→20:47)
[2022-08-11] MEDS: acetaZOLAMIDE 250 MG TABLET (DIAMOX) PO SCH (08:12)
--- NOTE | 2022-08-11 09:51 | NUR ---
dr campa was here and seen pt. informed md that pt had a slight fever last night.
--- NOTE | 2022-08-11 10:43 | NUR ---
Nutrition F/U RD reviewed pts current EMR including diet hx, physician notes, nursing notes, pertinent labs/meds/procedures, care trends and care activity. Short note d/t high workload Subjective Information RD attended ICU rounds and s/w primary RN. Pt has been reintubated and they are trying to wean him today or tomorrow. Pt currently on propofol @ 30mcg, which provides 783 kcals. Pt is getting D5 NS @ 50mL/hr, which provides 204 kcal. Per EMR review: pt abd soft, distended w/ hypoactive bowel sounds; pt BG levels are high (last reading was 295). Pt is likely not meeting nutritional needs at this time. Current Diet Order/Nutrition Support Vital AF 1.2 @35mL/hr, FWF 50 mL Q4H via OGT x 1 day Provides (w/ prop and D5):1995 kcal, 63 g PRO, 981 mL free water (inc FWF) Meets: 76% kcal and 77% of lower est PRO needs % PO intake NPO Last BM 08/10 x 1 NEW Estimated Energy Expenditure (kcals/day) 2634 kcal kcal (PSU 2010 vent/critical illness, MSJ 2499, Ve 11.3,Tmax 37.9) Estimated Protein Required (g/day) 82-102 (.8-1g/kg ABW for vent, renal labs) Estimated Fluid Required (l/day) Per physician d/t renal labs Problem/Etiology/Signs/Symptoms * Inadequate enteral nutrition r/t diet order a/e/b current EN provides 83% kcal and 53% PRO estimated needs (ongoing) Dietitian Recommendations * Advance Vital AF rate to 50mL/hr Provides (w/ current prop and D5): 2427 kcal, 90 g PRO, 973 mL free water Meets: 92% kcal and 88% of upper est PRO needs * Consider DC d5NS d/t high BG levels * If/when pt is extubated or prop is DC, please contact RD to re-assess needs Follow up High risk: see pt in 2-3 days CHER, MPH, RD
--- NOTE | 2022-08-11 10:46 | NUR ---
Dietitian Recommendations * Advance Vital AF rate to 50mL/hr Provides (w/ current prop and D5): 2427 kcal, 90 g PRO, 973 mL free water Meets: 92% kcal and 88% of upper est PRO needs * Consider DC d5NS d/t high BG levels * If/when pt is extubated or prop is DC, please contact RD to re-assess needs GS, MPH, RD Please refer to Nutrition F/U for further details. Thanks!
--- NOTE | 2022-08-11 11:15 | NUR ---
RT NOTES 1115 PLACED PT ON CPAP 5, PS15 40% FIO2. PT TOLERATING WELL, SATURATING 95%. NO DISTRESS NOTED. PER MD PERALTA'S ORDER DAILY CPAP TRIAL - START WITH PS 15, GRADUALLY DECREASE PS PT KERRY. WILL CONT TO MONITOR PT.
[2022-08-11] MEDS: ALBUMIN HUMAN 25% 50 ML IV SCH ×2 (13:06→19:23)
[2022-08-11] MEDS: D5/0.45 NS 1,000 ML IV SCH (16:53)
--- NOTE | 2022-08-11 19:15 | NUR ---
change of shift.pt.presents ett/ngt intact.ett:7.5/lip-line;24cm.pt.presents ng-tube feed:vital1.2 rate;35ml/hr.pt.presents picc-line location;rt.bicept intact.iv fluids/drips:diprivan:rate:20mcq/kg/min:rate=20ml/hr.versed;3mg/hr.rate;6ml/hr.pt. presents restraints;wrist bilateral in place.pt.presents andino cath intact;patent.call light w/in access of the pt.
--- NOTE | 2022-08-11 20:00 | NUR ---
pt.assessed.v/s assessed values wnl.ett/ngt intact i have attended to the oral care/suction.02-sat%=96%.ng-tube feed infusing. picc-line intact iv fluids/drips;diprivan,versed infusing.per flacc pain mgx pt.absent facial grimaces/body posturing.pt.assessed for cleanliness pt.repositioned.restraints wrist bilateral in place skin/circulation assessed.call light placed w/in access of the pt.
--- NOTE | 2022-08-11 21:00 | NUR ---
2100p medication:lopressor administered via ng-tube.ng-tube flushed w/out resistance.ng-tube residuals assessed note 10ml.per flacc pain mgx pt.absent facial grimaces/body posturing.call light w/in access of the pt.
--- NOTE | 2022-08-11 22:00 | NUR ---
pt.assessed.v/s assessed values wnl.02-sat%=96%.ett/ngt intact.i have attended to the oral care/suction.picc-line intact iv fluids/drips;infusing.restraints wrist bilateral in place.skin/circulation wnl.andino cath intact.per flacc pain mgx pt.absent facial grimaces/body posturing.pt.assessed for cleanliness.pt.repositioned.call light w/in access of the pt.
[2022-08-12] VITALS (30 sets, daily range): BP systolic 133–181
--- NOTE | 2022-08-12 | NUR ---
pt.assessed.v/s assessed values wnl.ett/ngt intact.i have attended to the oral care/suction.o2-sat%=98%.ng-tube feed infusing.restraints wrist bilateral intact.skin/circulation assessed wnl.picc-line intact iv fluids/drips;diprivan/versed infusing. per flacc pain mgx pt.absent facial grimaces/body posturing.pt.assessed for cleanliness.pt.repositioned.call light placed w/in access of the pt.
[2022-08-12] MEDS: INSULIN LISPRO SLIDING SCALE 100 UNITS/ML, 3 ML VIAL (humaLOG) SUBCUT PRN ×4 (00:16→18:00)
[2022-08-12] MEDS: ALBUMIN HUMAN 25% 50 ML IV SCH (00:21)
[2022-08-12] MEDS ORDERED: ALBUMIN HUMAN 25% 50 ML IV ONE (00:21)
[2022-08-12] MEDS: MIDAZOLAM IN NACL,ISO-OSMOT/PF 100 ML IV PRN (01:40)
--- NOTE | 2022-08-12 02:00 | NUR ---
pt.assessed.v/s assessed values wnl.ett/ngt intact i have attended to the oral care/suction.02-sat%=96%.picc-line intact iv fluids/drips;diprivan,versed infusing.restraints wrist bilateral in place skin/circulation assessed wnl.per flacc pain mgx pt. absent facial grimaces/body posturing.pt.assessed for cleanliness.pt.repositioned.call light placed w/in access of the pt.
[2022-08-12] MEDS: METHYLPREDNISOLONE SOD SUCC 40 MG/ML VIAL IVP SCH ×3 (02:04→17:58)
--- NOTE | 2022-08-12 04:00 | NUR ---
pt.assessed.v/s assessed values wnl note b/p status.ett/ngt intact.i have attended to the oral care/suction.02-sat%=96%. picc-line iv fluids/drips;diprivan,versed infusing.andino cath intact.restraints wrist bilateral in place.skin/circulation assessed wnl. per flacc pain mgx pt.absent facial grimaces/body posturing.pt.assessed for cleanliness.pt.repositioned.call light placed w/in access of the pt.
[2022-08-12] MEDS: PROPOFOL DRIP 100 ML IV PRN ×4 (04:52→23:00)
[2022-08-12] MEDS: IPRATROPIUM/ALBUTEROL SULFATE 3 ML AMPUL.NEB (DUONEB) INH SCH ×6 (05:24→23:24)
--- NOTE | 2022-08-12 06:00 | NUR ---
pt.assessed.v/s assessed values note b/p status.ett/ngt intact.i have attended to the oral/care suction.02-sat%=99%. picc-line intact iv fluids/drips;dipriivan/versed infusing.andino cath intact.per flacc pain mgx pt.absent facial grimaces/body posturing.pt.assessed for cleanliness.pt.repositioned.restraints wrist bilateral in place.skin/circulation assessed wnl.call light placed w/in access of the pt.
--- NOTE | 2022-08-12 07:23 | NUR ---
report received at bedside pt sedated and vented LIZBETH - PICC propofol @ 20mcg versed@ 5 d5 1/2NS@50ml/hr vent TV 550 FI02 40% Rate 20 Peep @ 5 no signs of distress/ vs stable, OG tube TF - Vital@35 water flush @50 Q 4hr Bilateral UA soft restraints noted.(renewed on PM shift) HOB@ 35 degrees
[2022-08-12 07:25] LABS: CALCIUM 8.4 mg/dL (8.4-11.0); CREATININE 1.79 mg/dL (0.55-1.30)
[2022-08-12] MEDS: PANTOPRAZOLE SODIUM 40 MG/VIAL (PROTONIX) IVP SCH (09:53)
[2022-08-12] MEDS: acetaZOLAMIDE 250 MG TABLET (DIAMOX) PO SCH (09:54)
[2022-08-12] MEDS: METOPROLOL TARTRATE 50 MG TABLET PO SCH ×2 (09:54→21:00)
[2022-08-12] MEDS: amLODIPine BESYLATE 5 MG TABLET JT SCH (09:55)
[2022-08-12] MEDS: ENOXAPARIN SODIUM 40 MG/0.4 ML SYRINGE SUBCUT SCH (09:55)
--- NOTE | 2022-08-12 10:13 | NUR ---
Nutrition Consult RD received Nutrition Consult (immobile, diabetic) 08/12/22 2539. Pt was seen and assessed by Meche Ding, MPH, RD yesterday. Please refer to Nutrition F/U for details. This RD agrees w/ most recent Dietitian Recommendations. Pt will continue to be seen as per nutrition care standards. Dietitian Recommendations * Advance Vital AF rate to 50mL/hr Provides (w/ current prop and D5): 2427 kcal, 90 g PRO, 973 mL free water Meets: 92% kcal and 88% of upper est PRO needs * Consider DC d5NS d/t high BG levels * If/when pt is extubated or prop is DC, please contact RD to re-assess needs
--- NOTE | 2022-08-12 22:36 | NUR ---
Spoke to patient's daughter regarding patient's overall prognosis. Patient is currentlt maxed on levophed and is titrating up on vasopressin gtt. Patient is also on FiO2 100% - with oxygen saturation of 88-90%. RT/RN communication was done during RT rounds. All questions answered. Daughter aware patient's overall condition is critical
[2022-08-13] VITALS (28 sets, daily range): BP systolic 14–166
[2022-08-13] MEDS: D5/0.45 NS 1,000 ML IV SCH ×2 (02:17→22:15)
[2022-08-13] MEDS: METHYLPREDNISOLONE SOD SUCC 40 MG/ML VIAL IVP SCH ×3 (02:45→21:36)
[2022-08-13] MEDS: PROPOFOL DRIP 100 ML IV PRN ×3 (02:59→22:08)
[2022-08-13] MEDS: IPRATROPIUM/ALBUTEROL SULFATE 3 ML AMPUL.NEB (DUONEB) INH SCH ×4 (03:53→15:22)
[2022-08-13 06:44] LABS: BASOPHILS % (AUTO) 0.1 % (0.0-2.0); EOSINOPHILS % (AUTO) 0.3 % (0.0-4.0); HEMATOCRIT 35.5 % (36-54); HEMOGLOBIN 11.6 g/dL (14.0-18.0); LYMPHOCYTES % (AUTO) 10.5 % (20.5-51.5); MEAN CORPUSCULAR HEMOGLOBIN 30 pg (27-31); MEAN CORPUSCULAR HGB CONC 33 % (32-36); MEAN CORPUSCULAR VOLUME 92 fL (79.0-98.0); MONOCYTES % (AUTO) 10.9 % (1.7-9.3); NEUTROPHILS # (AUTO) 7.4 K/uL (1.8-7.7); NEUTROPHILS % (AUTO) 78.2 % (40.0-70.0); PLATELET COUNT (AUTO) 117 K/uL (130-430); RED BLOOD CELL COUNT(AUTO) 3.88 MIL/uL (4.2-6.2); RED CELL DISTRIBUTION WIDTH 13.1 % (9.0-15.0); WHITE BLOOD COUNT (AUTO) 9.5 K/uL (4.8-10.8)
[2022-08-13 07:13] LABS: CALCIUM 8.3 mg/dL (8.4-11.0); CREATININE 1.63 mg/dL (0.55-1.30); PHOSPHORUS 3.5 mg/dL (2.7-4.5)
[2022-08-13] MEDS ORDERED: IPRATROPIUM BROM 0.5 MG/2.5 ML VIAL.NEB (ATROVENT) INH ONE (07:56)
[2022-08-13] MEDS ORDERED: IPRATROPIUM/ALBUTEROL SULFATE 3 ML AMPUL.NEB (DUONEB) ONE (07:57)
[2022-08-13] MEDS: PANTOPRAZOLE SODIUM 40 MG/VIAL (PROTONIX) IVP SCH (09:00)
[2022-08-13] MEDS: METOPROLOL TARTRATE 50 MG TABLET PO SCH ×2 (09:00→21:36)
[2022-08-13] MEDS: ENOXAPARIN SODIUM 40 MG/0.4 ML SYRINGE SUBCUT SCH (09:00)
[2022-08-13] MEDS: amLODIPine BESYLATE 5 MG TABLET JT SCH (09:00)
[2022-08-13] MEDS: acetaZOLAMIDE 250 MG TABLET (DIAMOX) PO SCH (09:00)
--- NOTE | 2022-08-13 11:16 | NUR ---
AND DAUGHTER HERE AT BEDSIDE WITH UPDATE
[2022-08-13] MEDS: MIDAZOLAM IN NACL,ISO-OSMOT/PF 100 ML IV PRN (13:31)
[2022-08-13] MEDS: INSULIN LISPRO SLIDING SCALE 100 UNITS/ML, 3 ML VIAL (humaLOG) SUBCUT PRN ×2 (13:35→23:36)
--- NOTE | 2022-08-13 19:15 | NUR ---
change of shift.pt.presents ett/ng-tube.pt.presents vent.vent settings;tv;550,fio2%:40%,a/c;20,peep;5.02-sat%= 98%. pt.presents ng-tube feed;vital:1.2 rate:50ml/hr.pt.presents picc line;location rt.bicept.iv fluids/drips;diprivan/versed. diprivan conc rate;20mcq/kg/min:rate=20ml/hr.versed;conc rate:3gm/hr=3ml/hr.pt.presents restraints;wrist;bilateral. in place skin/circulation assessed wnl.pt.presents adnino cath intact;patent.call light w/in access of the pt.
--- NOTE | 2022-08-13 20:00 | NUR ---
pt.assessed.v/s assessed values note b/p status.ett/ngt intact i have attended to the oral care/suction.02-sat%=98%.restraints wrist bilateral in place.skin/circulation assessed wnl.picc line intact.iv fluids/drips;diprivan/versed infusing.andino cath intact;patent ng-tube feed infusing.per flacc pain mgx pt.absent facial grimaces/body posturing.pt.assessed for cleanliness.pt.repositioned.call light placed w/in access of the pt.
--- NOTE | 2022-08-13 21:00 | NUR ---
2100p medication administered via ng-tube.ng-tube flushed w/out resistance.ng-tube feed residuals assessed noted;10ml. per flacc pain mgx pt.absent facial grimaces/body posturing.call light w/in access of the pt.
--- NOTE | 2022-08-13 22:00 | NUR ---
pt.assessed.v/s assessed values wnl.02-sat%=99%.ett/ngt intact.i have attended to the oral care/suction.picc line intact iv fluids/drips;diprivan/versed infusing.andino cath intact.restraints wrist bilateral in place skin/circulation assessed wnl.per flacc pain mgx pt. absent facial grimaces/body posturing.pt.assessed for cleanliness.pt.repositioned.call light placed w/in access of the pt.
[2022-08-14] VITALS (29 sets, daily range): BP systolic 114–166
--- NOTE | 2022-08-14 | NUR ---
pt.assessed.v/s assessed values wnl note b/p status.ett/ngt intact.i have attended to the oral care/suction.02-sat%=98%.picc line intact iv fluids/drips;diprivan,versed infusing.ng-tube feed infusing.restraints wrist bilateral in place.skin/circulation assessed wnl.per flacc pain mgx pt.absent facial grimaces/body posturing.pt.assessed for cleanliness pt.repositioned.call light place w/in access of the pt.
[2022-08-14] MEDS: IPRATROPIUM/ALBUTEROL SULFATE 3 ML AMPUL.NEB (DUONEB) INH SCH ×5 (00:06→23:09)
--- NOTE | 2022-08-14 01:30 | NUR ---
r/t:lu reduced the fio2%;35%.i have been apprised per lu;r/t.
--- NOTE | 2022-08-14 02:00 | NUR ---
pt.assessed.v/s assessed values wnl note b/p status.ett/ogt intact oral care/suction attended to.02-sat%=98%.picc line intact iv fluids/drips:diprivan/versed infusing.ogt feed infusing.andino cath intact;patent.restraints wrist bilateral in place.skin/circulation assessed wnl.per flacc pain mgx pt.absent facial grimaces/body posturing.pt assessed for cleanliness.pt.repositioned.call light placed w/in access of the pt.
[2022-08-14] MEDS: METHYLPREDNISOLONE SOD SUCC 40 MG/ML VIAL IVP SCH ×3 (02:47→18:07)
[2022-08-14] MEDS: PROPOFOL DRIP 100 ML IV PRN ×5 (02:49→17:15)
--- NOTE | 2022-08-14 04:00 | NUR ---
pt.assessed.v/s assessed values wnl.note b/p status.ett/ngt intact oral care/suction attended to.02-sat%=98%.picc line intact iv fluids/drips;diprivan,versed infusing.restraints wrist bilateral in place skin/circulation assessed wnl.per flacc pain mgx pt.absent facial grimaces/body posturing.pt.assessed for cleanliness pt.repositioned.call light placed w/in access of the pt.
[2022-08-14] MEDS: INSULIN LISPRO SLIDING SCALE 100 UNITS/ML, 3 ML VIAL (humaLOG) SUBCUT PRN ×3 (05:35→18:07)
--- NOTE | 2022-08-14 06:00 | NUR ---
pt.assessed.v/s assessed values note b/p status.ett/ngt intact oral care/suction attended to.02-sat%=98%.picc line intact iv fluids/drips;diprivan,versed infusing.ng-tube feed infusing.andino cath intact;patent.per flacc pain mgx pt.absent facial grimaces body posturing.pt.repositioned.restraints wrist bilateral in place,skin/circulation assessed wnl.call light placed w/in access of the pt.
[2022-08-14 06:22] LABS: BASOPHILS % (AUTO) 0.3 % (0.0-2.0); HEMATOCRIT 37.5 % (36-54); HEMOGLOBIN 11.9 g/dL (14.0-18.0); LYMPHOCYTES # (AUTO) 0.3 K/uL (1.0-5.5); LYMPHOCYTES % (AUTO) 2.3 % (20.5-51.5); MEAN CORPUSCULAR HEMOGLOBIN 29 pg (27-31); MEAN CORPUSCULAR HGB CONC 32 % (32-36); MEAN CORPUSCULAR VOLUME 93 fL (79.0-98.0); MONOCYTES # (AUTO) 0.3 K/uL (0.0-1.0); MONOCYTES % (AUTO) 3.1 % (1.7-9.3); NEUTROPHILS # (AUTO) 10.5 K/uL (1.8-7.7); NEUTROPHILS % (AUTO) 94.3 % (40.0-70.0); PLATELET COUNT (AUTO) 117 K/uL (130-430); RED BLOOD CELL COUNT(AUTO) 4.06 MIL/uL (4.2-6.2); RED CELL DISTRIBUTION WIDTH 13.2 % (9.0-15.0); WHITE BLOOD COUNT (AUTO) 11.1 K/uL (4.8-10.8)
[2022-08-14 07:10] LABS: ALBUMIN 2.8 g/dL (3.4-4.8); C-REACTIVE PROTEIN QUANT 0.3 mg/dL (0-0.5); CALCIUM 8.5 mg/dL (8.4-11.0); CREATININE 1.61 mg/dL (0.55-1.30); PHOSPHORUS 3.9 mg/dL (2.7-4.5); TOTAL BILIRUBIN 0.5 mg/dL (0.0-1.0)
--- NOTE | 2022-08-14 08:30 | NUR ---
RT NOTES CPAP 5 PS15 TRIAL, RR28 HR 78 SAT 92%TV 319. RN AWARE, WILL CONT TO MONITOR. Addendum: 08/14/22 at 0840 by Johnna Correia RT Amended: Links added.
[2022-08-14] MEDS ORDERED: FUROSEMIDE 40 MG/4 ML VIAL IVP ONE (08:45)
--- NOTE | 2022-08-14 09:41 | NUR ---
RT NOTES 0910 PT PLACED BACK TO AC DUE TO DESAT AND TACHYPNEA. RN AWARE.
[2022-08-14] MEDS: PANTOPRAZOLE SODIUM 40 MG/VIAL (PROTONIX) IVP SCH (09:43)
[2022-08-14] MEDS: amLODIPine BESYLATE 5 MG TABLET JT SCH (09:43)
[2022-08-14] MEDS: METOPROLOL TARTRATE 50 MG TABLET PO SCH ×2 (09:43→21:44)
[2022-08-14] MEDS: acetaZOLAMIDE 250 MG TABLET (DIAMOX) PO SCH (09:43)
[2022-08-14] MEDS: ENOXAPARIN SODIUM 40 MG/0.4 ML SYRINGE SUBCUT SCH (09:47)
--- NOTE | 2022-08-14 09:52 | NUR ---
Nutrition F/U RD reviewed pts current EMR including diet hx, physician notes, nursing notes, pertinent labs/meds/procedures, care trends and care activity. Short note d/t high workload Subjective Information RD rounded to ICU meeting and s/w primary RN regarding pt. RN attested to pt still being on restraints, with prop at 30 mcg (provides 755 [address]). RD asked if we could turn D5 off and RN agreed with d/t high BG. RN attested to pt having skin tear on buttocks; RD suggested Steven BID. RD witnessed TF running at goal rate; RN said pt tolerating w/ minimal residuals. Per EMR review; last documented BM 08/10; abd firm, distended, w/ hypoactive bowel sounds; BG remain high (364H). Current order w/ propofol provides: 2195 kcal, 90 g PRO, 1273 mL free water ([employer] inc) Meets: 83% est kcal and 88% upper est PRO needs Current Diet Order/Nutrition Support Vital AF @ 50 mL/hr, free water flush 50mL q4h via OGT % PO intake NPO Last BM 08/10 x 1 Estimated Energy Expenditure (kcals/day) 2634 kcal kcal (PSU 2010 vent/critical illness, MSJ 2499, Ve 11.3,Tmax 37.9) Estimated Protein Required (g/day) 82-102 (.8-1g/kg ABW for vent, renal labs) Estimated Fluid Required (l/day) Per physician d/t renal labs Problem/Etiology/Signs/Symptoms * Inadequate enteral nutrition r/t diet order a/e/b current EN provides 83% kcal and 53% PRO estimated needs (ongoing) Dietitian Recommendations * Advance Vital AF rate to 60 mL/hr Provides (w/ current prop): 2482 kcal, 108 g PRO, 1468 mL free water (FWF inc) Meets: 94% est kcal and 106% upper est PRO needs * Ordered: Steven BID * Consider bowel regimen as no BM documented since 08/10 * If/when pt is extubated or prop is DC, please contact RD to re-assess needs Follow up Moderate risk: see pt in 3-5 days GS, MPH, RD
--- NOTE | 2022-08-14 09:55 | NUR ---
Dietitian Recommendations * Advance Vital AF rate to 60 mL/hr Provides (w/ current prop): 2482 kcal, 108 g PRO, 1468 mL free water ([employer]) Meets: 94% est kcal and 106% upper est PRO needs * Ordered: Steven BID * Consider bowel regimen as no BM documented since 08/10 * If/when pt is extubated or prop is DC, please contact RD to re-assess needs GS, MPH, RD Please refer to Nutrition F/U for further details. Thanks!
[2022-08-14] MEDS: 0.45% NACL 1,000 ML IV SCH (11:37)
[2022-08-14 12:04] LABS: ERYTHROCYTE SEDIMENTATION RATE 12 MM/HR (0-15)
--- NOTE | 2022-08-14 13:45 | NUR ---
EVERETT DIAZ AT BEDSIDE TO ASSESS SKIN TEAR ON LEFT BUTTOCK, ASSESS FOR CHANGE IN MATTRESS. STAGE 2 WOUND ON LEFT BUTTOCK CLEANED WITH NS AND Z-GUARD APPLIED WITH OPTIFOAM DRESSING. INSTRUCTED TO USE WEDGES TO TURN PATIENT OF LARGER STATURE. WHEN TURNED TO LEFT, USE LARGE WEDGE ON RIGHT SIDE AND PILLOW WEDGED ON LEFT SIDE TO "FLOAT" PATIENT OFF OF BUTTOCKS. WHEN TURNED TO RIGHT, USE TWO SMALL WEDGES ON LEFT SIDE AND AVOID BUTTOCKS AREA, ONE ABOVE HIPS AND ONE ON POSTERIOR THIGH AREA AND PILLOW ON RIGHT SIDE. PICC LINE DRESSING ALSO CHANGED, USE OF STERILE TECHNIQUE AND KIT, NEW STAT LOCK APPLIED AFTER CHLORAPREP. NEW STAT LOCK APPLIED FOR F/C TO RIGHT MEDIAL THIGH ALSO.
--- NOTE | 2022-08-14 13:45 | NUR ---
WOUND EVALUATION: Wound Consult received from Dr. Barnhart. Thank you, Dr. Barnhart, for the consult. Patient received in a Andre Bed with an IsoFlex MONAE Mattress, obtunded, unresponsive, intubated. Patient is unable to turn in bed independently. Michael Score is a 10. Past Medical History: Sleep Apnea, COPD, Morbid Obesity, Essential Hypertension, Diabetes Mellitus, Diabetic Vasculopathy, right-sided blindness, Dyslipidemia. Recent Labs: WBC 11.1, RBC 4.06, hemoglobin 11.9, hematocrit 37.5, platelets 117, chloride 109, BUN 69, creatinine 1.61, GFR 46, magnesium 2.6, glucose 364, serum total protein 6.2, albumin 2.8, PTT 23.7. Microbiology: Blood culture results x2 negative. MRSA screen results negative. Endo tracheal sputum culture results negative. Bronchoalveolar aspirate culture results negative. Intrinsic factors that delay wound healing: Sleep Apnea, COPD, Diabetes Mellitus, Diabetic Vasculopathy, Hypoalbuminemia. Extrinsic factors that delay wound healing: Decreased mobility. Wound Assessment: 1. Left Buttock: Stage II pressure ulcer. Wound bed has 90% pink tissue, 10% red tissue. No odor, no drainage. Periwound intact. Wound measures 3.8 cm x 4.3 cm. Recommend: Cleanse wound with normal saline. Apply moisture barrier cream to wound and sigifredo-wound. Apply hydrogel to any portions of wound not covered by moisture barrier cream. Cover with foam dressing. Perform wound care daily, and as needed for dressing soiling or dislodgement. Also recommend: Reposition patient side to side only every 2 hours (when turning to the left, place pillow underneath left buttock and place wedge underneath right buttock; when turning to right, place pillow underneath right buttock and place 2 small wedges above and below the wound site on the left buttock), off-load pressure areas with pillows for pressure re-distribution. Offload, elevate and float bilateral heels with 1 pillow lengthwise under each extremity at all times. Perform skin care and monitor skin integrity Q shift. Use moisture barrier cream on buttocks and other moisture susceptible areas QID and as needed for soiling. Place patient on a bariatric bed with a low air-loss mattress.
--- NOTE | 2022-08-14 17:45 | NUR ---
RT NOTES 1730 CHANGED MAYRA ARCHIBALD CUFF LEAK, PUSHED ET TUBE TO 28CM LL. ER DOCTOR JORGE CHECKED ETT WITH LARYNGOSCOPE, CONFIRMED TUBE IN PLACE. VOLUMES ACHEIVED. RN AWARE. Addendum: 08/14/22 at 1752 by Johnna Correia RT Amended: Links added.
[2022-08-15] VITALS (28 sets, daily range): BP systolic 113–165
[2022-08-15] MEDS: INSULIN LISPRO SLIDING SCALE 100 UNITS/ML, 3 ML VIAL (humaLOG) SUBCUT PRN ×4 (00:32→18:36)
[2022-08-15] MEDS: IPRATROPIUM/ALBUTEROL SULFATE 3 ML AMPUL.NEB (DUONEB) INH SCH ×6 (03:00→23:17)
[2022-08-15] MEDS: METHYLPREDNISOLONE SOD SUCC 40 MG/ML VIAL IVP SCH ×3 (03:27→18:34)
[2022-08-15] MEDS: PROPOFOL DRIP 100 ML IV PRN ×3 (06:56→18:05)
[2022-08-15 07:08] LABS: CALCIUM 8.8 mg/dL (8.4-11.0); CREATININE 1.67 mg/dL (0.55-1.30)
--- NOTE | 2022-08-15 08:38 | NUR ---
RT NOTES 0830 PT PLACED ON CPAP 5 PS15, HR76 SAT 95% F15. WILL CONT TO MONITOR. RN AWARE. Addendum: 08/15/22 at 0841 by Johnna Correia RT Amended: Links added.
[2022-08-15] MEDS: METOPROLOL TARTRATE 50 MG TABLET PO SCH ×2 (08:51→20:50)
[2022-08-15] MEDS: amLODIPine BESYLATE 5 MG TABLET JT SCH (08:52)
[2022-08-15] MEDS: acetaZOLAMIDE 250 MG TABLET (DIAMOX) PO SCH (08:52)
[2022-08-15] MEDS: ENOXAPARIN SODIUM 40 MG/0.4 ML SYRINGE SUBCUT SCH (08:52)
[2022-08-15] MEDS: PANTOPRAZOLE SODIUM 40 MG/VIAL (PROTONIX) IVP SCH (08:52)
[2022-08-15] MEDS: 0.45% NACL 1,000 ML IV SCH (09:00)
--- NOTE | 2022-08-15 11:50 | NUR ---
TUBE FEED REDUCED TO 45 PER UNLOADER OPERATOR DUE TO HIGH BLOOD SUGARS
--- NOTE | 2022-08-15 11:59 | NUR ---
Nutrition Note: RD s/w lost charge card clerk about pt's chronically high BG levels. The best option for him would be to lower his TF rate to 45mL/hr and keep a close eye on his BG. This pt is not at risk for malnutrition and will be ok being underfed for a short period. Vital AF 1.2 @ 45mL/hr Provides (w/ Steven BID): 1476 kcal and 86 g PRO Meets: 56% of est kcal and 105% of lower est PRO needs GS, MPH, RD
[2022-08-15] MEDS ORDERED: FUROSEMIDE 20 MG/2 ML VIAL IVP ONE (12:00)
[2022-08-15] MEDS: FUROSEMIDE 20 MG/2 ML VIAL IVP SCH (21:00)
[2022-08-16] VITALS (32 sets, daily range): BP systolic 132–167
[2022-08-16] MEDS: PROPOFOL DRIP 100 ML IV PRN ×4 (00:30→22:22)
[2022-08-16] MEDS: METHYLPREDNISOLONE SOD SUCC 40 MG/ML VIAL IVP SCH ×3 (02:40→18:30)
[2022-08-16 05:41] LABS: BASOPHILS % (AUTO) 0.2 % (0.0-2.0); EOSINOPHILS # (AUTO) 0.2 K/uL (0.0-0.4); EOSINOPHILS % (AUTO) 1.6 % (0.0-4.0); HEMATOCRIT 35.2 % (36-54); HEMOGLOBIN 11.4 g/dL (14.0-18.0); LYMPHOCYTES # (AUTO) 1.2 K/uL (1.0-5.5); LYMPHOCYTES % (AUTO) 10.9 % (20.5-51.5); MEAN CORPUSCULAR HEMOGLOBIN 30 pg (27-31); MEAN CORPUSCULAR HGB CONC 32 % (32-36); MEAN CORPUSCULAR VOLUME 92 fL (79.0-98.0); MONOCYTES # (AUTO) 1.1 K/uL (0.0-1.0); MONOCYTES % (AUTO) 10.2 % (1.7-9.3); NEUTROPHILS # (AUTO) 8.7 K/uL (1.8-7.7); NEUTROPHILS % (AUTO) 77.1 % (40.0-70.0); PLATELET COUNT (AUTO) 124 K/uL (130-430); RED BLOOD CELL COUNT(AUTO) 3.84 MIL/uL (4.2-6.2); RED CELL DISTRIBUTION WIDTH 13.2 % (9.0-15.0); WHITE BLOOD COUNT (AUTO) 11.3 K/uL (4.8-10.8)
[2022-08-16 06:08] LABS: ALBUMIN 2.5 g/dL (3.4-4.8); CALCIUM 8.4 mg/dL (8.4-11.0); CREATININE 1.56 mg/dL (0.55-1.30); TOTAL BILIRUBIN 0.5 mg/dL (0.0-1.0)
--- NOTE | 2022-08-16 07:30 | NUR ---
RECEIVED REPORT FOR PT FROM ISIDORO MAK. PT IS STABLE, REMAINS ON DRIPS AND VENTILATED. PT AWAITING MD FROM [facility] FOR CPAP TRIAL. PT TO BE FURTHER ASSESSED BY MD FOR PLAN OF CARE WITH DISPOSITION.
--- NOTE | 2022-08-16 08:00 | NUR ---
MD FERGUSON AT BEDSIDE FOR ASSESSMENT. PT TO BE TRIALED WITH CPAP AND PRECEDEX TO BE ADD TO PREPARE FOR WEANING MEASURES.
--- NOTE | 2022-08-16 08:15 | NUR ---
RT NOTES Dr Evaristo tejeda, instructed to change vent to cpap 5 ps 10 despite diprivan being on. no apneic episode noted, will monitor pt.
[2022-08-16] MEDS: PANTOPRAZOLE SODIUM 40 MG/VIAL (PROTONIX) IVP SCH (09:06)
[2022-08-16] MEDS: acetaZOLAMIDE 250 MG TABLET (DIAMOX) PO SCH (09:06)
[2022-08-16] MEDS: FUROSEMIDE 20 MG/2 ML VIAL IVP SCH ×2 (09:06→21:57)
[2022-08-16] MEDS: amLODIPine BESYLATE 5 MG TABLET JT SCH (09:06)
[2022-08-16] MEDS: METOPROLOL TARTRATE 50 MG TABLET PO SCH ×2 (09:06→21:58)
[2022-08-16] MEDS: ENOXAPARIN SODIUM 40 MG/0.4 ML SYRINGE SUBCUT SCH (09:07)
--- NOTE | 2022-08-16 11:25 | NUR ---
RT NOTES Vent back to AC, due to sat 90-91%
[2022-08-16] MEDS: IPRATROPIUM/ALBUTEROL SULFATE 3 ML AMPUL.NEB (DUONEB) INH SCH ×5 (11:27→23:05)
[2022-08-16] MEDS: INSULIN LISPRO SLIDING SCALE 100 UNITS/ML, 3 ML VIAL (humaLOG) SUBCUT PRN ×2 (11:58→17:32)
[2022-08-17] VITALS (35 sets, daily range): BP systolic 117–185
[2022-08-17] MEDS: hydrALAZINE HCL 20 MG/ML VIAL IVP PRN (00:28)
[2022-08-17] MEDS: INSULIN LISPRO SLIDING SCALE 100 UNITS/ML, 3 ML VIAL (humaLOG) SUBCUT PRN ×3 (00:57→18:29)
[2022-08-17] MEDS: IPRATROPIUM/ALBUTEROL SULFATE 3 ML AMPUL.NEB (DUONEB) INH SCH ×6 (03:05→23:00)
[2022-08-17] MEDS: METHYLPREDNISOLONE SOD SUCC 40 MG/ML VIAL IVP SCH ×2 (03:37→11:37)
[2022-08-17 06:17] LABS: BASOPHILS % (AUTO) 0.3 % (0.0-2.0); EOSINOPHILS # (AUTO) 0.1 K/uL (0.0-0.4); EOSINOPHILS % (AUTO) 0.6 % (0.0-4.0); HEMATOCRIT 38.8 % (36-54); HEMOGLOBIN 12.4 g/dL (14.0-18.0); LYMPHOCYTES # (AUTO) 0.7 K/uL (1.0-5.5); LYMPHOCYTES % (AUTO) 6.1 % (20.5-51.5); MEAN CORPUSCULAR HEMOGLOBIN 29 pg (27-31); MEAN CORPUSCULAR HGB CONC 32 % (32-36); MEAN CORPUSCULAR VOLUME 92 fL (79.0-98.0); MONOCYTES % (AUTO) 8.8 % (1.7-9.3); NEUTROPHILS # (AUTO) 9.8 K/uL (1.8-7.7); NEUTROPHILS % (AUTO) 84.2 % (40.0-70.0); PLATELET COUNT (AUTO) 128 K/uL (130-430); RED BLOOD CELL COUNT(AUTO) 4.24 MIL/uL (4.2-6.2); RED CELL DISTRIBUTION WIDTH 13.3 % (9.0-15.0); WHITE BLOOD COUNT (AUTO) 11.7 K/uL (4.8-10.8)
--- NOTE | 2022-08-17 07:14 | NUR ---
RECEIVED PT FROM [facility] NURSE MARTINEZ RN. PT IS CURRENTLY SEDATED @15 PROPOFOL, 0.3 PRECEDEX. CURRENT VITALS ARE 127 71, HR 78 RR 22. NO FEVER TEMP WAS 97.2. PT IS ON VENT SETTING ARE AC 20, TV 550, FIO2 40% PEEP 5. DR FERGUSON ORDERED TERMINATION OF PROP TO ALLOW FOR CPAP TRIAL. POSSIBLE EXTUBATION TOMORROW DEPENDING ON HOW PT TOLERATES CPAP TODAY. WILL CONT TO MONITOR AND PROVIDE CARE ORDERED.
[2022-08-17 07:15] LABS: CALCIUM 8.5 mg/dL (8.4-11.0); CREATININE 1.36 mg/dL (0.55-1.30)
--- NOTE | 2022-08-17 07:58 | NUR ---
RT NOTES CPAP was attempted, pt was not awake enough, apneic episodes noted.
[2022-08-17] MEDS: FUROSEMIDE 20 MG/2 ML VIAL IVP SCH ×2 (08:29→22:15)
[2022-08-17] MEDS: PANTOPRAZOLE SODIUM 40 MG/VIAL (PROTONIX) IVP SCH (08:29)
[2022-08-17] MEDS: acetaZOLAMIDE 250 MG TABLET (DIAMOX) PO SCH (08:30)
[2022-08-17] MEDS: METOPROLOL TARTRATE 50 MG TABLET PO SCH ×2 (08:32→22:16)
[2022-08-17] MEDS: ENOXAPARIN SODIUM 40 MG/0.4 ML SYRINGE SUBCUT SCH (08:37)
[2022-08-17] MEDS: amLODIPine BESYLATE 5 MG TABLET JT SCH (08:37)
--- NOTE | 2022-08-17 08:50 | NUR ---
RT NOTES Dr Evaristo tejeda, made aware of apneic episode on cpap. Dr instructed Rn to turn of diprivan and increase precedex. Will do cpap once diprivan is off.
--- NOTE | 2022-08-17 11:18 | NUR ---
RT NOTES start cpap Coordinated with RN, diprivan is off, vent to cpap 5 ps 10. No immediate adverse reactions noted. will monitor pt. at bedside.
--- NOTE | 2022-08-17 11:35 | NUR ---
RT NOTES Pt cont. to tolerate CPAP, no distress noted, no apneic episode noted.
--- NOTE | 2022-08-17 15:35 | NUR ---
RT NOTES end of cpap Vent back to AC per 2-3 hour trial.
[2022-08-18] VITALS (29 sets, daily range): BP systolic 125–167
[2022-08-18] MEDS: IPRATROPIUM/ALBUTEROL SULFATE 3 ML AMPUL.NEB (DUONEB) INH SCH ×6 (03:00→23:13)
[2022-08-18] MEDS: INSULIN LISPRO SLIDING SCALE 100 UNITS/ML, 3 ML VIAL (humaLOG) SUBCUT PRN ×5 (03:29→23:37)
[2022-08-18] MEDS: METHYLPREDNISOLONE SOD SUCC 40 MG/ML VIAL IVP SCH ×3 (03:30→17:30)
[2022-08-18 05:55] LABS: BASOPHILS # (AUTO) 0.1 K/uL (0.0-0.2); BASOPHILS % (AUTO) 0.7 % (0.0-2.0); EOSINOPHILS # (AUTO) 0.3 K/uL (0.0-0.4); EOSINOPHILS % (AUTO) 2.3 % (0.0-4.0); HEMATOCRIT 38.8 % (36-54); HEMOGLOBIN 12.7 g/dL (14.0-18.0); LYMPHOCYTES % (AUTO) 9.2 % (20.5-51.5); MEAN CORPUSCULAR HEMOGLOBIN 30 pg (27-31); MEAN CORPUSCULAR HGB CONC 33 % (32-36); MEAN CORPUSCULAR VOLUME 92 fL (79.0-98.0); MONOCYTES % (AUTO) 9.7 % (1.7-9.3); NEUTROPHILS # (AUTO) 8.5 K/uL (1.8-7.7); NEUTROPHILS % (AUTO) 78.1 % (40.0-70.0); PLATELET COUNT (AUTO) 125 K/uL (130-430); RED BLOOD CELL COUNT(AUTO) 4.24 MIL/uL (4.2-6.2); RED CELL DISTRIBUTION WIDTH 13.3 % (9.0-15.0); WHITE BLOOD COUNT (AUTO) 10.8 K/uL (4.8-10.8)
[2022-08-18 06:12] LABS: ALBUMIN 2.4 g/dL (3.4-4.8); CALCIUM 8.6 mg/dL (8.4-11.0); CREATININE 1.48 mg/dL (0.55-1.30); TOTAL BILIRUBIN 0.8 mg/dL (0.0-1.0)
--- NOTE | 2022-08-18 07:52 | NUR ---
RT NOTES start of cpap Pt. appears awake, vent to cpap 5 ps 10. no immediate adverse reactions noted. will monitor pt. rn was notified @8127
[2022-08-18] MEDS: ENOXAPARIN SODIUM 40 MG/0.4 ML SYRINGE SUBCUT SCH (08:36)
[2022-08-18] MEDS: FUROSEMIDE 20 MG/2 ML VIAL IVP SCH ×2 (08:36→20:31)
[2022-08-18] MEDS: PANTOPRAZOLE SODIUM 40 MG/VIAL (PROTONIX) IVP SCH (08:36)
[2022-08-18] MEDS: acetaZOLAMIDE 250 MG TABLET (DIAMOX) PO SCH (08:50)
[2022-08-18] MEDS: amLODIPine BESYLATE 5 MG TABLET JT SCH (08:50)
[2022-08-18] MEDS: METOPROLOL TARTRATE 50 MG TABLET PO SCH ×2 (08:51→20:32)
[2022-08-18] MEDS: DOCUSATE SODIUM 100 MG/10 ML UDC PO SCH ×2 (09:00→17:18)
[2022-08-18] MEDS: POLYETHYLENE GLYCOL 3350, 17 GM/ POWD.PACK PO SCH ×2 (09:00→17:18)
--- NOTE | 2022-08-18 09:15 | NUR ---
RT NOTES Oral sxn done before cuff deflation, pt is alert, responds appropriately by nodding. Per order, pt was extubated and placed on 2L Nc. Pt was re-educated on deep breathing. BIPAP at bedside. on standby.
--- NOTE | 2022-08-18 09:45 | NUR ---
RT NOTES Pt cont. to tolerate 2L NC. H.R 69 RR 21 sat 93%. Pt is awake, no distress noted
--- NOTE | 2022-08-18 16:52 | NUR ---
SPEECH THERAPY AT BEDSIDE FOR SWALLOW EVAL. PT PASSED, PER ST, PUREED DIET AND THINNED LIQUIDS, TO ENTER DIET ORDERS HERSELF. PT VSS. NAD NOTED. WILL CONT TO MONITOR PT.
--- NOTE | 2022-08-18 17:03 | NUR ---
ST EVALUATION COMPLETED. ST TX NOT INDICATED AT THIS TIME. RECOMMEND PO DIET OF PUREE/THIN LIQUID. 1:1 SUPERVISION AND FULL ASPIRATION PRECAUTIONS.
--- NOTE | 2022-08-18 20:00 | NUR ---
Nutrition F/U RD reviewed pts current EMR including diet hx, physician notes, nursing notes, pertinent labs/meds/procedures, care trends and care activity. Shortened note d/t high workload. Subjective Information: RD rounded to ICU and witnessed patient awake, alert in bed with at bedside. Patient was extubated and was pending swallow evaluation at time of RD visit. Patient denies N/V and endorses good appetite. Patient reports feeling very hungry and he is ready to start a diet. Per EMR review, patient LBM document 08/10, 8 days ago. Patient noted with distended abdomen and hypoactive bowel sounds. RD s/w speech therapist s/p swallow evaluation: ST recommends puree diet w/ thin liquids. Current Diet Order/Nutrition Support: Puree diet w/ thin liquids x 0 days % PO intake 0% - NPO Last BM 08/10 x 1 NEW* Estimated Energy Expenditure (kcals/day) 4932-2549 (25-30 kcal/kg IBW for extubation, BMI >30) Estimated Protein Required (g/day) 82-102 (.8-1g/kg ABW for vent, renal labs) Estimated Fluid Required (l/day) Per physician d/t renal labs Problem/Etiology/Signs/Symptoms * Inadequate enteral nutrition r/t diet order a/e/b current EN provides 83% kcal and 53% PRO estimated needs (resolved) Dietitian Recommendations * Ordered: Consistent CHO, puree diet * Continue Steven BID * Consider bowel regimen as no BM documented since 08/10 Follow up High risk: f/u in 2-3 days
--- NOTE | 2022-08-18 20:01 | NUR ---
Dietitian Recommendations * Ordered: Consistent CHO, puree diet * Continue Steven BID * Consider bowel regimen as no BM documented since 08/10 Please refer to nutrition f/u for details, thanks! Ju Mercer MPH, RDN
--- NOTE | 2022-08-18 20:04 | NUR ---
Patient is awake verbally Responsive on PUREE PO diet assist as needed 02 SAT 96 % is at the bedside / .
[2022-08-18] MEDS: SENNA 8.8 MG/5 ML UDC GT SCH (20:31)
[2022-08-18] MEDS: cloNIDine HCL 0.1 MG TABLET PO PRN (20:33)
--- NOTE | 2022-08-18 21:42 | NUR ---
CLONIDINE 0.1 MG PO given for elevated BP / .
--- NOTE | 2022-08-18 21:43 | NUR ---
Re Check of BP 167/93 HR 90 BPM .
[2022-08-18] MEDS: 0.45% NACL 1,000 ML IV SCH (23:37)
--- NOTE | 2022-08-18 23:48 | NUR ---
BSG Blood Sugar @ 280 mg dl six units of insulin per sliding scale , patient awake & alert / .
[2022-08-19] VITALS (15 sets, daily range): BP systolic 128–166
[2022-08-19] MEDS: METHYLPREDNISOLONE SOD SUCC 40 MG/ML VIAL IVP SCH ×3 (01:55→18:14)
[2022-08-19] MEDS: IPRATROPIUM/ALBUTEROL SULFATE 3 ML AMPUL.NEB (DUONEB) INH SCH ×6 (03:15→23:27)
--- NOTE | 2022-08-19 05:36 | NUR ---
PATIENT REFUSING CARE & KICKING OUT / .
--- NOTE | 2022-08-19 05:37 | NUR ---
PHONED PAGED DR BUBBA STACY FOR UPDATE , PATIENT KICKING OUT / .
[2022-08-19] MEDS: INSULIN LISPRO SLIDING SCALE 100 UNITS/ML, 3 ML VIAL (humaLOG) SUBCUT PRN ×3 (06:14→23:12)
[2022-08-19 06:43] LABS: BASOPHILS % (AUTO) 0.1 % (0.0-2.0); EOSINOPHILS % (AUTO) 0.1 % (0.0-4.0); HEMATOCRIT 39.3 % (36-54); HEMOGLOBIN 12.8 g/dL (14.0-18.0); LYMPHOCYTES # (AUTO) 0.5 K/uL (1.0-5.5); LYMPHOCYTES % (AUTO) 4.2 % (20.5-51.5); MEAN CORPUSCULAR HEMOGLOBIN 30 pg (27-31); MEAN CORPUSCULAR HGB CONC 33 % (32-36); MEAN CORPUSCULAR VOLUME 92 fL (79.0-98.0); MONOCYTES # (AUTO) 0.3 K/uL (0.0-1.0); MONOCYTES % (AUTO) 2.8 % (1.7-9.3); NEUTROPHILS # (AUTO) 10.1 K/uL (1.8-7.7); NEUTROPHILS % (AUTO) 92.8 % (40.0-70.0); PLATELET COUNT (AUTO) 132 K/uL (130-430); RED CELL DISTRIBUTION WIDTH 13.1 % (9.0-15.0); WHITE BLOOD COUNT (AUTO) 10.9 K/uL (4.8-10.8)
[2022-08-19 07:39] LABS: CREATININE 1.39 mg/dL (0.55-1.30)
[2022-08-19] MEDS: 0.45% NACL 1,000 ML IV SCH (07:58)
[2022-08-19] MEDS: DOCUSATE SODIUM 100 MG/10 ML UDC PO SCH (10:30)
[2022-08-19] MEDS: amLODIPine BESYLATE 5 MG TABLET JT SCH (10:31)
[2022-08-19] MEDS: acetaZOLAMIDE 250 MG TABLET (DIAMOX) PO SCH (10:32)
[2022-08-19] MEDS: METOPROLOL TARTRATE 50 MG TABLET PO SCH ×2 (10:32→20:34)
[2022-08-19] MEDS: FUROSEMIDE 20 MG/2 ML VIAL IVP SCH ×2 (10:33→20:34)
[2022-08-19] MEDS: ENOXAPARIN SODIUM 40 MG/0.4 ML SYRINGE SUBCUT SCH (10:34)
[2022-08-19] MEDS: PANTOPRAZOLE SODIUM 40 MG/VIAL (PROTONIX) IVP SCH (10:42)
--- NOTE | 2022-08-19 15:29 | NUR ---
ICU TRANSFER: RECEIVED PT FROM ISIDORO FERRELL. PT IS A/O X3 ON A BREATHING TREATMENT. BREATHING IS NOTED EVEN AND UNLABORED ON 2L NC. NO S/S OF DISTRESS OR PAIN REPORTED. FAMILY IS AT BEDSIDE. PT IV IS PATENT LOCATED RIGHT UPPER ARM WITH NS @ 50ML/HR. VASQUEZ CATHETER IS DRAINING TO GRAVITY AND SECURED. BED IS LOCKED IN LOWEST POSITION, CALL LIGHT WITHIN REACH. PT ORIENTATED TO ROOM. ALL NEEDS MET. WILL CONTINUE TO MONITOR.
--- NOTE | 2022-08-19 15:32 | NUR ---
Have cared for patient today since AM shift. Patient in very good spirits. Evaluated by Dr. Kohler and ordered to transfer to telemetry today. patient visited with his , daughter, son and daughter in law throughout the day and with more conversation patient was more aware and conversive than earlier. Patient was fed by and ate 50% of his pureed meal while consistently drinking water throughout the day. Gave report to RN on floor and transferred patient to room 118B. Patient has no sign or symptom of acute distress unpo discharge at this time.
--- NOTE | 2022-08-19 18:19 | NUR ---
CLOSING NOTES: PT IN BED A/O X 3. BREATHING IS EVEN AND UNLABORED ON 2L NC. NO S/S OF DISTRESS OR PAIN REPORTED. VASQUEZ CATHETER IS DRAINING TO GRAVITY SAMANTA COLORED URINE. ALL NEEDS MET AT THIS TIME, SAFETY CHECKS MADE AND CALL LIGHT WITHIN REACH. WILL ENDORSE TO NIGHT NURSE.
--- NOTE | 2022-08-19 19:10 | NUR ---
OPENING NOTE REPORT RECEIVED FROM DAYSHIFT NURSE. PATIENT RECEIVED LYING IN BED, AWAKE, NO S/S OF ACUTE DISTRESS, DENIES PAIN. BREATHING EVEN AND UNLABORED. HOB RAISED, NASAL CANULA ATTACHED PROPERLY, ON 2L OF OXYGEN. IVF INFUSING WELL, IV SITE PATENT, NO SIGNS OF INFILTRATION OR INFECTION NOTED. VASQUEZ ATTACHED, SECURED, AND DRAINING BY GRAVITY. CALL LIGHT WITH PATIENT. BED ALARM ON. BED IS LOCKED AND AT LOWEST POSITION. WILL CONTINUE TO MONITOR.
[2022-08-19] MEDS: SENNA 8.8 MG/5 ML UDC GT SCH (20:33)
--- NOTE | 2022-08-19 23:00 | NUR ---
ROUNDS PATIENT IN BED, RESTING. NO SIGNS OF DISCOMFORT NOTED. ALL NEEDS MET. WILL MONITOR.
[2022-08-20 00:46] VITALS: BP_SYST 146
[2022-08-20] MEDS: METHYLPREDNISOLONE SOD SUCC 40 MG/ML VIAL IVP SCH ×3 (02:19→20:16)
[2022-08-20] MEDS: 0.45% NACL 1,000 ML IV SCH ×2 (02:19→20:18)
--- NOTE | 2022-08-20 03:00 | NUR ---
ROUNDS PATIENT IN BED, NO CHANGE IN CONDITION. ALL NEEDS MET. WILL MONITOR.
[2022-08-20] MEDS: IPRATROPIUM/ALBUTEROL SULFATE 3 ML AMPUL.NEB (DUONEB) INH SCH ×4 (04:27→15:21)
[2022-08-20] MEDS: INSULIN LISPRO SLIDING SCALE 100 UNITS/ML, 3 ML VIAL (humaLOG) SUBCUT PRN ×4 (05:31→23:13)
--- NOTE | 2022-08-20 06:32 | NUR ---
CLOSING NOTE PATIENT IN BED, RESTING AT THIS TIME. NO S/S OF ACUTE DISTRESS. BREATHING EVEN AND UNLABORED. IVF INFUSING WELL, IV SITE PATENT, NO SIGNS OF INFILTRATION OR INFECTION NOTED. VASQUEZ ATTACHED, SECURED, AND DRAINING BY GRAVITY. ALL NEEDS MET THROUGHOUT SHIFT. FALL, SAFETY PRECAUTIONS MAINTAINED THROUGHOUT SHIFT. WILL CONTINUE TO MONITOR UNTIL PATIENT CARE IS ENDORSED TO ONCOMING DAYSHIFT NURSE.
[2022-08-20 08:00] VITALS: BP_SYST 141
--- NOTE | 2022-08-20 08:05 | NUR ---
OPENING NOTES: PT IN BED A/O X3. PT IS SEEING THINGS THAT AREN'T THERE IN ROOM. NO S/S OF DISTRESS OR PAIN REPORTED. BREATHING IS EVEN AND UNLABORED ON 2L NC. ALL NEEDS MET AT THIS TIME, SAFETY CHECKS MADE AND CALL LIGHT WITHIN REACH.
[2022-08-20] MEDS: METOPROLOL TARTRATE 50 MG TABLET PO SCH ×2 (09:57→20:17)
[2022-08-20] MEDS: DOCUSATE SODIUM 100 MG/10 ML UDC PO SCH (09:58)
[2022-08-20] MEDS: amLODIPine BESYLATE 5 MG TABLET JT SCH (09:58)
[2022-08-20] MEDS: POLYETHYLENE GLYCOL 3350, 17 GM/ POWD.PACK PO SCH (09:58)
[2022-08-20] MEDS: ENOXAPARIN SODIUM 40 MG/0.4 ML SYRINGE SUBCUT SCH (09:59)
[2022-08-20] MEDS: PANTOPRAZOLE SODIUM 40 MG/VIAL (PROTONIX) IVP SCH (11:46)
[2022-08-20] MEDS: FUROSEMIDE 20 MG/2 ML VIAL IVP SCH ×2 (11:47→20:17)
--- NOTE | 2022-08-20 12:00 | NUR ---
ROUNDS: PT IN BED WATCHING SPORTS. FAMILY AT BEDSIDE. NO S/S OF DISTRESS OR PAIN REPORTED. BREATHING IS EVEN AND UNLABORED ON 2L NC. ALL NEEDS MET AT THIS TIME, SAFETY CHECKS MADE AND CALL LIGHT WITHIN REACH.
[2022-08-20 12:44] VITALS: BP_SYST 142
[2022-08-20 16:41] VITALS: BP_SYST 142
--- NOTE | 2022-08-20 18:09 | NUR ---
CLOSING NOTES: PT IN BED WITH EATING DINNER WITH FAMILY AT BEDSIDE. BREATHING IS EVEN AND UNLABORED ON 2L NC. NO S/S OF DISTRESS OR PAIN REPORTED. ALL NEEDS MET AT THIS TIME, SAFETY CHECKS MADE AND CALL LIGHT WITHIN REACH. WILL ENDORSE TO NIGHT NURSE.
--- NOTE | 2022-08-20 19:15 | NUR ---
OPENING NOTE REPORT RECEIVED FROM DAYSAZFT NURSE. PATIENT RECEIVED LYING IN BED, RESTING. NO S/S OF ACUTE DISTRESS. BREATHING EVEN AND UNLABORED. HOB RAISED, NASAL CANULA ATTACHED. IVF INFUSING WELL, IV SITE PATENT, NO SIGNS OF INFILTRATION OR INFECTION NOTED. VASQUEZ ATTACHED, SECURED, AND DRAINING BY GRAVITY. CALL LIGHT WITH PATIENT. BED ALARM ON. BED IS LOCKED AND AT LOWEST POSITION. WILL CONTINUE TO MONITOR.
[2022-08-20 20:00] VITALS: BP_SYST 122
[2022-08-20] MEDS: SENNA 8.8 MG/5 ML UDC GT SCH (20:16)
--- NOTE | 2022-08-20 23:00 | NUR ---
ROUNDS PATIENT IN BED, RESTING. BIPAP ATTACHED AND OPERATING. NO SIGNS OF DISCOMFORT. ALL NEEDS MET. CALL LIGHT WIT PATIENT. BED ALAR ON. WILL CONTINUE TO MONITOR.
[2022-08-21 00:16] VITALS: BP_SYST 139
--- NOTE | 2022-08-21 02:57 | NUR ---
ROUNDS NO CHANGE FROM PREVIOUS. ALL NEEDS MET. WILL MONITOR.
[2022-08-21] MEDS: INSULIN LISPRO SLIDING SCALE 100 UNITS/ML, 3 ML VIAL (humaLOG) SUBCUT PRN ×3 (05:47→17:38)
--- NOTE | 2022-08-21 06:21 | NUR ---
CLOSING NOTE PATIENT IN BED, NO S/S OF ACUTE DISTRESS. BREATHING IS EVEN AND UNLABORED. HOB RAISED, NASAL CANULA ATTACHED PROPERLY, ON 2L OF OXYGEN. IVF INFUSING WELL, IV SITE PATENT, NO SIGNS OF INFILTRATION OR INFECTION NOTED. VASQUEZ ATTACHED, SECURED, AND DRAINING BY GRAVITY. ALL NEEDS MET THROUGHOUT SHIFT. FALL, SAFETY PRECAUTIONS MAINTAINED THROUGHOUT SHIFT. WILL CONTINUE TO MONITOR UNTIL PATIENT CARE IS ENDORSED TO ONCOMING DAYSHIFT NURSE.
[2022-08-21] MEDS: IPRATROPIUM/ALBUTEROL SULFATE 3 ML AMPUL.NEB (DUONEB) INH SCH ×5 (07:11→23:13)
--- NOTE | 2022-08-21 07:20 | NUR ---
OPENING NOTE RECEIVED SBAR FROM NIGHT RN. PATIENT IN BED, RESPIRATIONS EVEN, NON LABORED, 2L O2 NASAL CANULA. BED IN LOW AND LOCKED POSITION, CALL LIGHT WITHIN REACH. IVF RUNNING ORDERED. BED ALARM ON
[2022-08-21] MEDS ORDERED: amLODIPine BESYLATE 5 MG TABLET PO SCH (07:49)
[2022-08-21] MEDS ORDERED: SENNA 8.8 MG/5 ML UDC PO SCH (07:50)
[2022-08-21 08:00] VITALS: BP_SYST 158
[2022-08-21] MEDS ORDERED: COMMUNICATION ORDER XX ONE (08:00)
[2022-08-21 08:09] LABS: ALBUMIN 2.8 g/dL (3.4-4.8); CALCIUM 8.9 mg/dL (8.4-11.0); CREATININE 1.54 mg/dL (0.55-1.30)
[2022-08-21] MEDS: POLYETHYLENE GLYCOL 3350, 17 GM/ POWD.PACK PO SCH (09:12)
[2022-08-21] MEDS: amLODIPine BESYLATE 5 MG TABLET PO SCH (09:13)
[2022-08-21] MEDS: METOPROLOL TARTRATE 50 MG TABLET PO SCH ×2 (09:14→21:10)
[2022-08-21] MEDS: FUROSEMIDE 20 MG/2 ML VIAL IVP SCH ×2 (09:14→21:10)
[2022-08-21] MEDS: PANTOPRAZOLE SODIUM 40 MG/VIAL (PROTONIX) IVP SCH (09:15)
[2022-08-21] MEDS: ENOXAPARIN SODIUM 40 MG/0.4 ML SYRINGE SUBCUT SCH (09:15)
[2022-08-21] MEDS: METHYLPREDNISOLONE SOD SUCC 40 MG/ML VIAL IVP SCH ×2 (09:15→21:17)
[2022-08-21 11:41] VITALS: BP_SYST 130
--- NOTE | 2022-08-21 12:11 | NUR ---
Nutrition F/U RD reviewed pts current EMR including diet hx, physician notes, nursing notes, pertinent labs/meds/procedures, care trends and care activity. Subjective Information: RD rounded to pt room and found pt alert in bed with and daughter at bedside. Patient seemed a bit confused and his attested that what he was "confused. Pt endorses good appetite; however documented PO is 34%. stated that when he feeds himself, he mostly gets the food on himself, rather than in his mouth. RD suggested that we send Glucerna BID to help improve his intakes. When asked if he was receiving Juvens, both his and RN attested to him not receiving them; RD re-added to computrition. RN attested to LBM as 08/20. Pt denies any GI symptoms at this time. Per EMR review, patient noted with soft, non-distended abd and active bowel sounds. Current Diet Order/Nutrition Support: Puree diet, Standard 60g CHO x 3 days; Steven BID x 6 days % PO intake Poor avg of 34% x 4 meals Last BM 08/20 x 1 Estimated Energy Expenditure (kcals/day) 2017-3915 (25-30 kcal/kg IBW for extubation, BMI >30) Estimated Protein Required (g/day) 82-102 (.8-1g/kg ABW for vent, renal labs) Estimated Fluid Required (l/day) Per physician d/t renal labs Problem/Etiology/Signs/Symptoms * Inadequate enteral nutrition r/t diet order a/e/b current EN provides 83% kcal and 53% PRO estimated needs (resolved) Dietitian Recommendations * Continue Consistent, standard-60g CHO, puree diet * Continue Steven BID * Ordered: Glucerna BID * Consider swallow evaluation to advance pt diet when ready Follow up Moderate risk: f/u in 3-5 days GS, MPH, RD
--- NOTE | 2022-08-21 12:14 | NUR ---
Dietitian Recommendations * Continue Consistent, standard-60g CHO, puree diet * Continue Steven BID * Ordered: Glucerna BID * Consider swallow evaluation to advance pt diet when ready GS, MPH, RD Please refer to Nutrition F/U for further details. Thanks!
--- NOTE | 2022-08-21 12:50 | NUR ---
MD DR MAC BEDSIDE. NEW ORDERS RECEIVED
[2022-08-21 15:53] VITALS: BP_SYST 118
--- NOTE | 2022-08-21 16:00 | NUR ---
NURSE NOTE PATIENT IN BED, RESPIRATIONS EVEN, NON LABORED, O2 BY NASAL CANULA, IVF'S RUNNING ORDERED. VASQUEZ DRAINING BY GRAVITY. BED IN LOW AND LOCKED POSITION, CALL LIGHT WITHIN REACH, BED ALARM ON. PATIENT DENIES ANY PAIN OR DISCOMFORT
--- NOTE | 2022-08-21 17:00 | NUR ---
MD CARREON REQUESTED THAT DR MAC PUT IN AN ORDER FOR CASE MANAGEMENT SNF PLACEMENT. PAGELeilani STACY
[2022-08-21] MEDS: 0.45% NACL 1,000 ML IV SCH (17:24)
--- NOTE | 2022-08-21 19:41 | NUR ---
closing note Provided SBAR to night RN. Patient in bed, respirations even, non labored, 2L O2 nasal canula. Bed in low and locked position, call light within reach, bed alarm on. is bedside. IVF's running as ordered, andino draining by gravity. Addendum: 08/21/22 at 1945 by Nunu Newell RN endorsed to night director of healthcare systems
[2022-08-21 20:00] VITALS: BP_SYST 110
[2022-08-21] MEDS: SENNA 8.8 MG/5 ML UDC PO SCH (21:10)
--- NOTE | 2022-08-21 22:06 | NUR ---
Shift Summary patient is AAOX3. vitals are stable. patient and updated on plan of care for shift. patient stated he wanted to go home. informed patient and that patient isnt stable to go home. agreed. informed patient to use call light if he needs assistance from staff due to him being a high fall risk. patient states hes aware. was bedside when education was given. call light within reach, bed set to low, locked, and alarm on. will continue to monitor.
[2022-08-22] VITALS: BP_SYST 139
[2022-08-22] MEDS: INSULIN LISPRO SLIDING SCALE 100 UNITS/ML, 3 ML VIAL (humaLOG) SUBCUT PRN ×4 (00:32→17:47)
[2022-08-22] MEDS: IPRATROPIUM/ALBUTEROL SULFATE 3 ML AMPUL.NEB (DUONEB) INH SCH ×6 (03:38→23:54)
[2022-08-22] MEDS: POLYETHYLENE GLYCOL 3350, 17 GM/ POWD.PACK PO SCH (08:59)
[2022-08-22] MEDS: DOCUSATE SODIUM 100 MG/10 ML UDC PO SCH (08:59)
[2022-08-22] MEDS: amLODIPine BESYLATE 5 MG TABLET PO SCH (09:00)
[2022-08-22] MEDS: ENOXAPARIN SODIUM 40 MG/0.4 ML SYRINGE SUBCUT SCH (09:00)
[2022-08-22] MEDS: METOPROLOL TARTRATE 50 MG TABLET PO SCH ×2 (09:01→21:35)
[2022-08-22] MEDS: PANTOPRAZOLE SODIUM 40 MG/VIAL (PROTONIX) IVP SCH (09:01)
[2022-08-22] MEDS: METHYLPREDNISOLONE SOD SUCC 40 MG/ML VIAL IVP SCH ×2 (09:01→21:34)
[2022-08-22] MEDS: FUROSEMIDE 20 MG/2 ML VIAL IVP SCH ×2 (09:02→21:34)
--- NOTE | 2022-08-22 11:33 | NUR ---
>>>PT NOTES<<< PT EVALUATION COMPLETED. PLEASE REFER TO EVAL FOR DETAILS.
[2022-08-22 11:35] VITALS: BP_SYST 160
--- NOTE | 2022-08-22 16:10 | NUR ---
CM: faxed order for snf eval to [facility].fax # [phone], [phone].
[2022-08-22 16:20] VITALS: BP_SYST 144
--- NOTE | 2022-08-22 19:00 | NUR ---
IV PLACEMENT:pt pulled out PICC line in right upper arm. # 22 gauge angiocath placed to right arm. Use of asceptic technique. Opsite placed over site. Blood return noted. Flushed with 10 cc of normal saline. No evidence of infiltration noted. Patient tolerated well.
[2022-08-22] MEDS: 0.45% NACL 1,000 ML IV SCH (19:02)
[2022-08-22 20:00] VITALS: BP_SYST 159
--- NOTE | 2022-08-22 20:00 | NUR ---
OPENING NOTES: PATIENT IS STABLE NO S/S OF ANY DISTRESS, RESTING WELL IN BED , BED AT LOW AND LOCKED POSITION CALL LIGHT IN REACH, SAFETY CHECKS ALL DONE, AND WILL DO THOUGHT THE DAY, WILL CONT TO MONITOR PER ORDERS.
[2022-08-22] MEDS: SENNA 8.8 MG/5 ML UDC PO SCH (21:00)
[2022-08-23] MEDS: cloNIDine HCL 0.1 MG TABLET PO PRN (00:13)
[2022-08-23] MEDS: INSULIN LISPRO SLIDING SCALE 100 UNITS/ML, 3 ML VIAL (humaLOG) SUBCUT PRN ×4 (00:15→17:29)
[2022-08-23 00:34] VITALS: BP_SYST 172
--- NOTE | 2022-08-23 00:35 | NUR ---
MIDNIGHT VITALS WERE DONE ON PT. PT'S BLOOD PRESSURE WAS 172/99, BP WS REPORTED TO ISIDORO SAXENA
[2022-08-23] MEDS: IPRATROPIUM/ALBUTEROL SULFATE 3 ML AMPUL.NEB (DUONEB) INH SCH ×4 (03:00→15:00)
[2022-08-23 05:01] VITALS: BP_SYST 154
--- NOTE | 2022-08-23 05:09 | NUR ---
ROUNDS PT STABLE CONDITION, FLACC=0, EMPTY VASQUEZ BAG 1800CC, WITH CPAP, NO SOB, NO ACUTE DISTRESS, CHANGE WOUND DRESSING, WILL CONTINUOUS MONITOR.
--- NOTE | 2022-08-23 06:30 | NUR ---
NURSES NOTES LT BUTTOCK WOUND CLEAN AND CHANGED PER MD'S ORDER, WILL CONT CARE.
--- NOTE | 2022-08-23 07:01 | NUR ---
closing note .Patient in bed, respirations even, non labored, 2L O2 nasal canula. Bed in low and locked position, call light within reach, bed alarm on. IVF's running as ordered, with thu
[2022-08-23 07:26] LABS: BASOPHILS % (AUTO) 0.2 % (0.0-2.0); CALCIUM 8.7 mg/dL (8.4-11.0); CREATININE 1.17 mg/dL (0.55-1.30); EOSINOPHILS % (AUTO) 0.5 % (0.0-4.0); HEMATOCRIT 38.9 % (36-54); HEMOGLOBIN 12.7 g/dL (14.0-18.0); LYMPHOCYTES # (AUTO) 0.7 K/uL (1.0-5.5); LYMPHOCYTES % (AUTO) 7.5 % (20.5-51.5); MEAN CORPUSCULAR HEMOGLOBIN 30 pg (27-31); MEAN CORPUSCULAR HGB CONC 33 % (32-36); MEAN CORPUSCULAR VOLUME 92 fL (79.0-98.0); MONOCYTES # (AUTO) 0.6 K/uL (0.0-1.0); MONOCYTES % (AUTO) 5.9 % (1.7-9.3); NEUTROPHILS # (AUTO) 8.3 K/uL (1.8-7.7); NEUTROPHILS % (AUTO) 85.9 % (40.0-70.0); PLATELET COUNT (AUTO) 89 K/uL (130-430); RED BLOOD CELL COUNT(AUTO) 4.23 MIL/uL (4.2-6.2); RED CELL DISTRIBUTION WIDTH 12.9 % (9.0-15.0); WHITE BLOOD COUNT (AUTO) 9.7 K/uL (4.8-10.8)
[2022-08-23] MEDS: PANTOPRAZOLE SODIUM 40 MG/VIAL (PROTONIX) IVP SCH (09:47)
[2022-08-23] MEDS: METHYLPREDNISOLONE SOD SUCC 40 MG/ML VIAL IVP SCH ×2 (09:47→21:15)
[2022-08-23] MEDS: ENOXAPARIN SODIUM 40 MG/0.4 ML SYRINGE SUBCUT SCH (09:48)
[2022-08-23] MEDS: POLYETHYLENE GLYCOL 3350, 17 GM/ POWD.PACK PO SCH (09:48)
[2022-08-23] MEDS: FUROSEMIDE 20 MG/2 ML VIAL IVP SCH ×2 (09:48→21:16)
[2022-08-23] MEDS: amLODIPine BESYLATE 5 MG TABLET PO SCH (09:49)
[2022-08-23] MEDS: DOCUSATE SODIUM 100 MG/10 ML UDC PO SCH (09:49)
[2022-08-23] MEDS: METOPROLOL TARTRATE 50 MG TABLET PO SCH ×2 (09:50→21:16)
[2022-08-23 11:40] VITALS: BP_SYST 148
[2022-08-23 15:30] VITALS: BP_SYST 123
--- NOTE | 2022-08-23 19:36 | NUR ---
pt is resting in the bed. he is obese.
[2022-08-23] MEDS ORDERED: ALBUTEROL SULFATE 0.083% 2.5 MG/3 ML VIAL.NEB INH ONE (19:41)
[2022-08-23] MEDS ORDERED: IPRATROPIUM BROM 0.5 MG/2.5 ML VIAL.NEB (ATROVENT) INH ONE (19:41)
[2022-08-23 20:00] VITALS: BP_SYST 158
--- NOTE | 2022-08-23 20:00 | NUR ---
pt is refusing a breathing treatment per RT.
--- NOTE | 2022-08-23 21:00 | NUR ---
Pt is able to carry conversation, able to answer questions.
[2022-08-23] MEDS: SENNA 8.8 MG/5 ML UDC PO SCH (21:17)
[2022-08-23] MEDS: ALBUTEROL SULFATE 0.083% 2.5 MG/3 ML VIAL.NEB INH SCH (23:13)
[2022-08-23] MEDS: IPRATROPIUM BROM 0.5 MG/2.5 ML VIAL.NEB (ATROVENT) INH SCH (23:13)
[2022-08-24] MEDS: INSULIN LISPRO SLIDING SCALE 100 UNITS/ML, 3 ML VIAL (humaLOG) SUBCUT PRN ×3 (00:31→18:07)
--- NOTE | 2022-08-24 00:35 | NUR ---
pt has episode of confusion,he said that he was going to go home.
[2022-08-24 00:40] VITALS: BP_SYST 162
[2022-08-24] MEDS: 0.45% NACL 1,000 ML IV SCH ×3 (00:49→21:38)
--- NOTE | 2022-08-24 02:00 | NUR ---
PT IS ON BIPAP MACHINE. PT TOLERATED WELL. RESTING COMFORTABLY.
[2022-08-24] MEDS: ALBUTEROL SULFATE 0.083% 2.5 MG/3 ML VIAL.NEB INH SCH ×6 (03:19→23:07)
[2022-08-24] MEDS: IPRATROPIUM BROM 0.5 MG/2.5 ML VIAL.NEB (ATROVENT) INH SCH ×6 (03:19→23:07)
[2022-08-24] MEDS: METHYLPREDNISOLONE SOD SUCC 40 MG/ML VIAL IVP SCH ×2 (08:30→21:38)
[2022-08-24 08:38] VITALS: BP_SYST 107
[2022-08-24] MEDS: PANTOPRAZOLE SODIUM 40 MG/VIAL (PROTONIX) IVP SCH (09:00)
[2022-08-24] MEDS: DOCUSATE SODIUM 100 MG/10 ML UDC PO SCH (09:00)
[2022-08-24] MEDS: ENOXAPARIN SODIUM 40 MG/0.4 ML SYRINGE SUBCUT SCH (09:00)
[2022-08-24] MEDS: POLYETHYLENE GLYCOL 3350, 17 GM/ POWD.PACK PO SCH (09:00)
[2022-08-24] MEDS: FUROSEMIDE 20 MG/2 ML VIAL IVP SCH ×2 (09:40→21:37)
[2022-08-24] MEDS: amLODIPine BESYLATE 5 MG TABLET PO SCH (09:41)
[2022-08-24] MEDS: METOPROLOL TARTRATE 50 MG TABLET PO SCH ×2 (09:42→21:37)
--- NOTE | 2022-08-24 12:25 | NUR ---
Pt's glucose is 240 and he reports he does not want to eat at this time. Insulin will be provided per pt agreement with meal.
[2022-08-24 12:52] VITALS: BP_SYST 121
--- NOTE | 2022-08-24 15:56 | NUR ---
PHYSICAL THERAPY CO-SIGN The Physical Therapy Progress Notes documented by Factorer have been reviewed. Reviewed/Co-Signed by: Chris Cooper Documentation Done by:SAVANAH SAHU Addendum: 08/24/22 at 1556 by Chris Cooper PT Amended: Links added.
--- NOTE | 2022-08-24 15:59 | NUR ---
CM: F/U SNF: [facility]: " Still no bed available and can not do the ROBERT to a non contracted facility. " Addendum: 08/24/22 at 1819 by Delores Gagnon RN late entry: Informed Jennifer, spouse that there is no bed available yet. I discussed the dc to home with HH options. She disagreed, said the pt is still confused and unable to get out of bed. She is the only long term care social worker and unable to handle the Pt and provides the appropriate IADLs. She will take pt home if pt is much improved with PT and she will need HH set up, bariatic DME: Nebulizer machine, hospital bed, BSC, FWW and possible ambulance transfer to home. There are 6 steps to front door. The pt already has Home oxygen and concentrator, Cpap , WC, Shower bench .
[2022-08-24 16:48] VITALS: BP_SYST 111
[2022-08-24 20:00] VITALS: BP_SYST 137
[2022-08-24] MEDS: SENNA 8.8 MG/5 ML UDC PO SCH (21:38)
[2022-08-25] MEDS: INSULIN LISPRO SLIDING SCALE 100 UNITS/ML, 3 ML VIAL (humaLOG) SUBCUT PRN ×4 (01:25→18:01)
[2022-08-25 01:31] VITALS: BP_SYST 122
--- NOTE | 2022-08-25 03:32 | NUR ---
PT RESTING IN BED, 0000 ACCUCHECK 261, 6 UNITS OF HUMALOG ADMINISTERED
[2022-08-25] MEDS: ALBUTEROL SULFATE 0.083% 2.5 MG/3 ML VIAL.NEB INH SCH ×6 (03:55→23:00)
[2022-08-25] MEDS: IPRATROPIUM BROM 0.5 MG/2.5 ML VIAL.NEB (ATROVENT) INH SCH ×6 (03:55→23:00)
--- NOTE | 2022-08-25 07:11 | NUR ---
FBS 281, pt received 4 unoits of Humalog. no acute distress overnight.
[2022-08-25 08:09] VITALS: BP_SYST 142
--- NOTE | 2022-08-25 09:30 | NUR ---
Pt does not want to take any medication until his arrives. He does not have an exact time but stated this am. Pt informed to notify myself and I will keep checking back.
[2022-08-25 09:32] LABS: CALCIUM 8.8 mg/dL (8.4-11.0); CREATININE 1.1 mg/dL (0.55-1.30)
[2022-08-25 11:50] VITALS: BP_SYST 127
[2022-08-25] MEDS: DOCUSATE SODIUM 100 MG/10 ML UDC PO SCH (12:00)
[2022-08-25] MEDS: ENOXAPARIN SODIUM 40 MG/0.4 ML SYRINGE SUBCUT SCH (12:00)
[2022-08-25] MEDS: PANTOPRAZOLE SODIUM 40 MG/VIAL (PROTONIX) IVP SCH (12:00)
[2022-08-25] MEDS: POLYETHYLENE GLYCOL 3350, 17 GM/ POWD.PACK PO SCH (12:00)
[2022-08-25] MEDS: METOPROLOL TARTRATE 50 MG TABLET PO SCH ×2 (12:02→22:22)
[2022-08-25] MEDS: FUROSEMIDE 20 MG/2 ML VIAL IVP SCH ×2 (12:02→22:21)
[2022-08-25] MEDS: amLODIPine BESYLATE 5 MG TABLET PO SCH (12:03)
[2022-08-25] MEDS: METHYLPREDNISOLONE SOD SUCC 40 MG/ML VIAL IVP SCH ×2 (12:06→22:22)
[2022-08-25 17:01] VITALS: BP_SYST 147
[2022-08-25] MEDS: 0.45% NACL 1,000 ML IV SCH (22:27)
[2022-08-25] MEDS: SENNA 8.8 MG/5 ML UDC PO SCH (22:27)
[2022-08-26] VITALS: BP_SYST 147
[2022-08-26] MEDS: INSULIN LISPRO SLIDING SCALE 100 UNITS/ML, 3 ML VIAL (humaLOG) SUBCUT PRN ×4 (01:13→17:39)
[2022-08-26 03:00] VITALS: BP_SYST 140
[2022-08-26] MEDS: ALBUTEROL SULFATE 0.083% 2.5 MG/3 ML VIAL.NEB INH SCH ×6 (03:38→23:20)
[2022-08-26] MEDS: IPRATROPIUM BROM 0.5 MG/2.5 ML VIAL.NEB (ATROVENT) INH SCH ×6 (03:38→23:20)
--- NOTE | 2022-08-26 07:08 | NUR ---
pt resting in bed, no distress overnight. fbs 257 4 units given. pt denies other complaints
[2022-08-26 08:00] VITALS: BP_SYST 140
[2022-08-26] MEDS: METHYLPREDNISOLONE SOD SUCC 40 MG/ML VIAL IVP SCH ×2 (08:30→21:23)
[2022-08-26] MEDS: PANTOPRAZOLE SODIUM 40 MG/VIAL (PROTONIX) IVP SCH (08:51)
[2022-08-26] MEDS: FUROSEMIDE 20 MG/2 ML VIAL IVP SCH ×2 (08:51→21:23)
[2022-08-26] MEDS: ENOXAPARIN SODIUM 40 MG/0.4 ML SYRINGE SUBCUT SCH (08:51)
[2022-08-26] MEDS: amLODIPine BESYLATE 5 MG TABLET PO SCH (08:52)
[2022-08-26] MEDS: METOPROLOL TARTRATE 50 MG TABLET PO SCH ×2 (08:53→21:23)
[2022-08-26] MEDS: POLYETHYLENE GLYCOL 3350, 17 GM/ POWD.PACK PO SCH (09:00)
[2022-08-26] MEDS: DOCUSATE SODIUM 100 MG/10 ML UDC PO SCH (09:00)
[2022-08-26 11:22] VITALS: BP_SYST 150
[2022-08-26] MEDS ORDERED: POTASSIUM CHLORIDE 20 MEQ TAB.PRT.SR PO ONE (11:45)
[2022-08-26 15:41] VITALS: BP_SYST 150
[2022-08-26] MEDS: 0.45% NACL 1,000 ML IV SCH (16:23)
--- NOTE | 2022-08-26 18:31 | NUR ---
PATIENT HAD AN UNEVENTFUL DAY, NO COMPLAINTS OF ACUTE DISTRESS OR DISCOMFORT. PATIENT TOLERATED DIET AND MEDICATIONS WELL, REFUSED SOME OF HIS MEDS THIS AM. ELEVATED BLOOD GLUCOSE, COVERAGE GIVEN PER SLIDING SCALE. SAFETY MAINTAINED THIS SHIFT. CONTINUE TO MONITOR CLOSELY.
--- NOTE | 2022-08-26 19:45 | NUR ---
PT IS AWAKE AND ALERT, ABLE TO ANSWERS QUESTIONS. PT IS IN BED. VASQUEZ IS INTACT HAS URINE OUTPUT WITH YELLOW COLOR URINE.
[2022-08-26 20:00] VITALS: BP_SYST 155
--- NOTE | 2022-08-26 21:00 | NUR ---
PT IS CURRENTLY USING THE BIPAP. BED IS LOWERED.
[2022-08-26] MEDS: SENNA 8.8 MG/5 ML UDC PO SCH (21:24)
[2022-08-27] VITALS: BP_SYST 147
[2022-08-27] MEDS: INSULIN LISPRO SLIDING SCALE 100 UNITS/ML, 3 ML VIAL (humaLOG) SUBCUT PRN ×4 (00:30→17:10)
--- NOTE | 2022-08-27 00:30 | NUR ---
ASSUMPTION OF CARE RECEIVED REPORT FROM TITI CHAUDHRY FOR CONTINUITY OF PATIENT CARE. PATIENT ASLEEP AT THIS TIME AND ON CPAP, VITALS STABLE. WILL CONTINUE TO MONITOR.
[2022-08-27] MEDS: IPRATROPIUM BROM 0.5 MG/2.5 ML VIAL.NEB (ATROVENT) INH SCH ×5 (03:28→22:00)
[2022-08-27] MEDS: ALBUTEROL SULFATE 0.083% 2.5 MG/3 ML VIAL.NEB INH SCH ×5 (03:29→22:00)
[2022-08-27 08:09] VITALS: BP_SYST 162
[2022-08-27] MEDS: PANTOPRAZOLE SODIUM 40 MG/VIAL (PROTONIX) IVP SCH (08:45)
[2022-08-27] MEDS: FUROSEMIDE 20 MG/2 ML VIAL IVP SCH ×2 (08:46→21:17)
[2022-08-27] MEDS: ENOXAPARIN SODIUM 40 MG/0.4 ML SYRINGE SUBCUT SCH (08:46)
[2022-08-27] MEDS: amLODIPine BESYLATE 5 MG TABLET PO SCH (08:47)
[2022-08-27] MEDS: METOPROLOL TARTRATE 50 MG TABLET PO SCH ×2 (08:47→21:16)
[2022-08-27] MEDS: POLYETHYLENE GLYCOL 3350, 17 GM/ POWD.PACK PO SCH (08:48)
[2022-08-27] MEDS: METHYLPREDNISOLONE SOD SUCC 40 MG/ML VIAL IVP SCH ×2 (08:50→21:16)
[2022-08-27] MEDS: DOCUSATE SODIUM 100 MG/10 ML UDC PO SCH (09:00)
[2022-08-27 11:26] VITALS: BP_SYST 149
[2022-08-27] MEDS: 0.45% NACL 1,000 ML IV SCH (13:30)
[2022-08-27 17:02] VITALS: BP_SYST 145
[2022-08-27 20:00] VITALS: BP_SYST 149
[2022-08-27] MEDS: SENNA 8.8 MG/5 ML UDC PO SCH (21:00)
[2022-08-28] MEDS: ALBUTEROL SULFATE 0.083% 2.5 MG/3 ML VIAL.NEB INH SCH ×7 (03:12→23:36)
[2022-08-28] MEDS: IPRATROPIUM BROM 0.5 MG/2.5 ML VIAL.NEB (ATROVENT) INH SCH ×7 (03:13→23:36)
[2022-08-28] MEDS: INSULIN LISPRO SLIDING SCALE 100 UNITS/ML, 3 ML VIAL (humaLOG) SUBCUT PRN ×3 (05:38→12:24)
--- NOTE | 2022-08-28 07:17 | NUR ---
rt notes 0717 pt off bipap, placed pt on 2LNC. pt saturating 97%. no distress noted.
[2022-08-28] MEDS: METHYLPREDNISOLONE SOD SUCC 40 MG/ML VIAL IVP SCH (08:30)
[2022-08-28] MEDS: POLYETHYLENE GLYCOL 3350, 17 GM/ POWD.PACK PO SCH ×2 (09:00→22:03)
[2022-08-28] MEDS: METOPROLOL TARTRATE 50 MG TABLET PO SCH ×2 (09:00→22:01)
[2022-08-28] MEDS: DOCUSATE SODIUM 100 MG/10 ML UDC PO SCH (09:00)
[2022-08-28] MEDS: ENOXAPARIN SODIUM 40 MG/0.4 ML SYRINGE SUBCUT SCH (09:00)
[2022-08-28] MEDS: amLODIPine BESYLATE 5 MG TABLET PO SCH (09:00)
[2022-08-28] MEDS: FUROSEMIDE 20 MG/2 ML VIAL IVP SCH (09:00)
[2022-08-28] MEDS: PANTOPRAZOLE SODIUM 40 MG/VIAL (PROTONIX) IVP SCH (09:00)
[2022-08-28] MEDS: 0.45% NACL 1,000 ML IV SCH (09:30)
[2022-08-28 11:40] VITALS: BP_SYST 144
--- NOTE | 2022-08-28 12:50 | NUR ---
Nutrition F/U RD reviewed pts current EMR including diet hx, physician notes, nursing notes, pertinent labs/meds/procedures, care trends and care activity. Subjective Information: RD rounded to pt room and found pt alert in bed with at bedside. Pt endorses good appetite; documented PO is 93%. states that he is very ready for solid food; so he can "get back to eating salads." RD said that she will alert the RN to see if he can put in swallow eval order; RN did this. said she would like to receive diet education; RD came back later and brought handouts. Please see interdisciplinary teaching record for details. Pt denies any GI symptoms at this time. Per EMR review, patient noted with soft, non-distended abd and active bowel sounds. Pt is likely meeting nutritional needs at this time. Current Diet Order/Nutrition Support: Puree diet, Standard 60g CHO, Glucerna BID x 7 days; Steven BID x 14 days % PO intake Good avg of 93% x 7 meals Last BM 2/2 x 1 Estimated Energy Expenditure (kcals/day) 7537-3385 (25-30 kcal/kg IBW for extubation, BMI >30) Estimated Protein Required (g/day) 82-102 (.8-1g/kg ABW for vent, renal labs) Estimated Fluid Required (l/day) Per physician d/t renal labs Problem/Etiology/Signs/Symptoms * Inadequate enteral nutrition r/t diet order a/e/b current EN provides 83% kcal and 53% PRO estimated needs (resolved) Dietitian Recommendations * Advance to [facility]- standard 60g CHO, once approved by PROGRAM ARRANGER * Consider swallow evaluation * Continue Steven BID * Continue Glucerna BID * Consider bowel regimen Follow up Moderate risk: f/u in 3-5 days GS, MPH, RD
--- NOTE | 2022-08-28 12:55 | NUR ---
Dietitian Recommendations * Advance to [facility] - standard 60g CHO diet, once approved by SPA MANAGER/ESTHETICIAN * Consider swallow evaluation * Continue Steven BID * Continue Glucerna BID * Consider bowel regimen GS, MPH, RD Please refer to Nutrition F/U for further details. Thanks!
[2022-08-28 14:34] VITALS: BP_SYST 188
--- NOTE | 2022-08-28 14:34 | NUR ---
Patient found seated on floor during PT eval. Assist to bed. Evaluation of vital signs. Call to primary MD.
[2022-08-28 15:35] VITALS: BP_SYST 147
--- NOTE | 2022-08-28 17:06 | NUR ---
ST EVALUATION COMPLETED. ST TX NOT INDICATED AT THIS TIME. RECOMMEND PO DIET OF MECHANICAL SOFT AND THIN LIQUID. DISTANT SUPERVISION AND FULL ASPIRATION PRECAUTIONS.
--- NOTE | 2022-08-28 18:44 | NUR ---
LEFT MESSAGE FOR LIFT ELECTRICIAN FOR DOCTOR MYNOR / DOCTOR BUBBA MD FOR PATIENT IV OUT REATTEMPT UNSUCCESSFUL POSSIBLE MIDLINE IF INDICATED.
--- NOTE | 2022-08-28 19:43 | NUR ---
RECEIVED PT LYING IN BED, NO DISTRESS NOTED, DENIES PAIN. AAOX4, O2 SAT 95% ON RA. DIMINISHED LUNG SOUNDS. WEAK PULSES TO BLE. ABD DISTENDED AND FIRM. STATES IT HAS BEEN A FEW DAYS SINCE PT HAS HAD A BM. WILL BE CHECKING IF PT HAS MEDS ORDER TO HELP MOVE HIS BOWELS. F/C DRAINING YELLOW URINE NO STAT LOCK NOTED FLAKY FEET, SOILED DRSG TO SACRUM, DRSG TO LT HEEL CDI Addendum: 08/28/22 at 2205 by [employer] ISIDORO Lubin RN NO WITH NO IV ACCESS, THEREFORE IV MEDICATION NOT GIVEN. PT IS A DIFFICULT STICK, MULTIPLE TRIES. CHARGE NURSE WILL TRY TO INSERT IV Addendum: 08/29/22 at 0257 by [employer] ISIDORO Lubin RN 08/28/220: PT HAS REFUSED WOUND CARE. IT WAS EXPLAINED THE IMPORTANCE OF IT. PT STATED "I DON'T WANT IT DONE NOW" WILL TRY AGAIN IN THE MORNING.
--- NOTE | 2022-08-28 19:44 | NUR ---
PHYSICAL THERAPY CO-SIGN The Physical Therapy Progress Notes documented by Medical Technicians have been reviewed. Reviewed/Co-Signed by: Chepe Johnson Documentation Done by:SAVANAH SAHU Addendum: 08/28/22 at 1944 by Chepe Johnson PT Amended: Links added.
[2022-08-28 20:00] VITALS: BP_SYST 138
[2022-08-28] MEDS: SENNA 8.8 MG/5 ML UDC PO SCH (22:02)
[2022-08-29] VITALS: BP_SYST 154
[2022-08-29] MEDS: INSULIN LISPRO SLIDING SCALE 100 UNITS/ML, 3 ML VIAL (humaLOG) SUBCUT PRN ×5 (00:05→17:25)
[2022-08-29] MEDS: METHYLPREDNISOLONE SOD SUCC 40 MG/ML VIAL IVP SCH ×3 (00:50→21:35)
[2022-08-29] MEDS: FUROSEMIDE 20 MG/2 ML VIAL IVP SCH ×3 (00:51→21:35)
[2022-08-29] MEDS: IPRATROPIUM BROM 0.5 MG/2.5 ML VIAL.NEB (ATROVENT) INH SCH ×5 (03:54→19:55)
[2022-08-29] MEDS: ALBUTEROL SULFATE 0.083% 2.5 MG/3 ML VIAL.NEB INH SCH ×5 (03:54→19:55)
[2022-08-29] MEDS: 0.45% NACL 1,000 ML IV SCH ×2 (05:59→19:40)
[2022-08-29 06:44] LABS: BASOPHILS % (AUTO) 0.2 % (0.0-2.0); EOSINOPHILS # (AUTO) 0.1 K/uL (0.0-0.4); EOSINOPHILS % (AUTO) 1.2 % (0.0-4.0); HEMOGLOBIN 12.1 g/dL (14.0-18.0); LYMPHOCYTES # (AUTO) 0.4 K/uL (1.0-5.5); LYMPHOCYTES % (AUTO) 6.6 % (20.5-51.5); MEAN CORPUSCULAR HEMOGLOBIN 30 pg (27-31); MEAN CORPUSCULAR HGB CONC 33 % (32-36); MEAN CORPUSCULAR VOLUME 91 fL (79.0-98.0); MONOCYTES # (AUTO) 0.2 K/uL (0.0-1.0); MONOCYTES % (AUTO) 3.5 % (1.7-9.3); NEUTROPHILS # (AUTO) 5.1 K/uL (1.8-7.7); NEUTROPHILS % (AUTO) 88.5 % (40.0-70.0); PLATELET COUNT (AUTO) 110 K/uL (130-430); RED BLOOD CELL COUNT(AUTO) 4.07 MIL/uL (4.2-6.2); RED CELL DISTRIBUTION WIDTH 13.2 % (9.0-15.0); WHITE BLOOD COUNT (AUTO) 5.8 K/uL (4.8-10.8)
[2022-08-29 06:52] LABS: CALCIUM 8.8 mg/dL (8.4-11.0); CREATININE 1.27 mg/dL (0.55-1.30)
[2022-08-29 07:00] VITALS: BP_SYST 142
--- NOTE | 2022-08-29 07:25 | NUR ---
rt notes 0717 pt off from bipap, placed pt on 2LNC. saturating 93%. given breathing tx. no distress noted. will cont to monitor pt.
[2022-08-29] MEDS: METOPROLOL TARTRATE 50 MG TABLET PO SCH ×2 (09:00→21:36)
[2022-08-29] MEDS: amLODIPine BESYLATE 5 MG TABLET PO SCH (09:03)
[2022-08-29] MEDS: DOCUSATE SODIUM 100 MG/10 ML UDC PO SCH (09:03)
[2022-08-29] MEDS: PANTOPRAZOLE SODIUM 40 MG/VIAL (PROTONIX) IVP SCH (09:04)
[2022-08-29] MEDS: POLYETHYLENE GLYCOL 3350, 17 GM/ POWD.PACK PO SCH (09:05)
[2022-08-29] MEDS: ENOXAPARIN SODIUM 40 MG/0.4 ML SYRINGE SUBCUT SCH (09:05)
[2022-08-29 11:32] VITALS: BP_SYST 121
--- NOTE | 2022-08-29 12:32 | NUR ---
PATIENT BS 534 @ [facility]. CALLED MD. MAC. PENDING CALL BACK. GAVE 12 U. REG. INSULIN PER ORDER.
--- NOTE | 2022-08-29 13:51 | NUR ---
PATIENT BS INCREASED TO 566. CALLED MD. TRIPATHI. MD. TRIPATHI AWARE. WILL PUT NEW ORDERS.
[2022-08-29 16:49] VITALS: BP_SYST 121
[2022-08-29] MEDS: INSULIN Lispro 100 UNITS/ML, 3 ML VIAL (humaLOG) SUBCUT SCH (17:23)
[2022-08-29 20:05] VITALS: BP_SYST 152
--- NOTE | 2022-08-29 20:05 | NUR ---
RECEIVED REPORT FROM OUTGOING RN THAT PT BS BEFORE DINNER WAS 483, RECHECK OF BS AROUND 7:48PM WAS 436. UPON ENTERING INTO PT ROOM, PT WAS IN BED, AOX4, SPOUSE BY BEDSIDE. BP SLIGHTLY HIGH 152/79, RECEIVED DUE BP MEDS. BS AT 2100 WAS 520, NOTIFIED Dr. Naty Harden, WHO ORDERED TO GIVE ROUTINE LANTUS AND 5UNITS OF REGULAR INSULIN X1 DOSE. ORDER PLACED AND CARRIED OUT. PT RECEIVED AND WENT TO SLEEP WITH BIPAP ON ACCUCHECK AT MN WAS 402, PT DENIED ANY S/S OF HYPERGLYCEMIA, PT RECEIVED SLIDING SCALE HUMULOG [address] MAC NOTIFIED VIA PAGE, YET TO RECEIVE ANY RESPONSE AT THIS TIME. PT ASLEEP IN BED, WILL CONTINUE WITH PLAN OF CARE.
[2022-08-29] MEDS: SENNA 8.8 MG/5 ML UDC PO SCH (21:00)
[2022-08-29] MEDS ORDERED: INSULIN GLARGINE 100 UNITS/ML, 10 ML VIAL SUBCUT SCH (21:00)
[2022-08-29] MEDS ORDERED: INSULIN REGULAR, HUMAN 100 UNITS/ML, 3 ML VIAL SUBCUT ONE (21:15)
--- NOTE | 2022-08-29 21:16 | NUR ---
HIGH ALERT NOTE: Called Dr. Naty Harden back and identified within the medical roster to verify physician authenticity for Regular insulin 5 units for one time.
[2022-08-30] VITALS: BP_SYST 146
[2022-08-30] MEDS: INSULIN LISPRO SLIDING SCALE 100 UNITS/ML, 3 ML VIAL (humaLOG) SUBCUT PRN ×4 (00:24→17:27)
--- NOTE | 2022-08-30 02:15 | NUR ---
DR MAC MADE AWARE AOUT PT BS AT GA 402, STATED OK
[2022-08-30] MEDS: ALBUTEROL SULFATE 0.083% 2.5 MG/3 ML VIAL.NEB INH SCH ×6 (03:31→23:10)
[2022-08-30] MEDS: IPRATROPIUM BROM 0.5 MG/2.5 ML VIAL.NEB (ATROVENT) INH SCH ×6 (03:32→23:10)
[2022-08-30] MEDS: 0.45% NACL 1,000 ML IV SCH ×2 (06:14→17:27)
[2022-08-30] MEDS: INSULIN Lispro 100 UNITS/ML, 3 ML VIAL (humaLOG) SUBCUT SCH ×3 (06:17→17:26)
--- NOTE | 2022-08-30 06:44 | NUR ---
PT AOX4, DENIED SOB, CP, OR ANY PAIN AT THIS TIME, CURRENT WT TAKEN AND RECORD, BS AT 0630 381 AND COVERED WITH INSULIN, F/C D/C'D THIS MORNING AND PT TOLERATED WELL, NS AT 100 ONGOING TO LT HAND W/O INFILTRATION, SAFETY PREC MAINTAINED, CALL LIGHT WITHIN REACH, ON 2L OF OXYGEN VIA N/C, WILL ENDORSE CARE CONTINUITY TO INCOMING RN
[2022-08-30 08:20] VITALS: BP_SYST 146
--- NOTE | 2022-08-30 08:20 | NUR ---
Patient stable; eating breakfast at this time. Denies any pain.
[2022-08-30] MEDS: DOCUSATE SODIUM 100 MG/10 ML UDC PO SCH (10:13)
[2022-08-30] MEDS: METHYLPREDNISOLONE SOD SUCC 40 MG/ML VIAL IVP SCH ×2 (10:13→21:42)
[2022-08-30] MEDS: PANTOPRAZOLE SODIUM 40 MG/VIAL (PROTONIX) IVP SCH (10:13)
[2022-08-30] MEDS: FUROSEMIDE 20 MG/2 ML VIAL IVP SCH ×2 (10:14→21:42)
[2022-08-30] MEDS: amLODIPine BESYLATE 5 MG TABLET PO SCH (10:15)
[2022-08-30] MEDS: ENOXAPARIN SODIUM 40 MG/0.4 ML SYRINGE SUBCUT SCH (10:15)
--- NOTE | 2022-08-30 10:15 | NUR ---
Scheduled medications given per order. Patient stable at this time. Addendum: 08/30/22 at 1040 by Subha Chavez RN Scheduled insulin given per order: 10 units Willy
[2022-08-30] MEDS: POLYETHYLENE GLYCOL 3350, 17 GM/ POWD.PACK PO SCH (10:16)
[2022-08-30] MEDS: METOPROLOL TARTRATE 50 MG TABLET PO SCH ×2 (10:16→21:43)
[2022-08-30] MEDS: INSULIN GLARGINE 100 UNITS/ML, 10 ML VIAL SUBCUT SCH ×2 (10:39→21:47)
[2022-08-30 11:21] VITALS: BP_SYST 147
--- NOTE | 2022-08-30 12:47 | NUR ---
Checked blood sugar: 421 mg/dl - will cover per sliding scale. Patient stable with , Meagan at bedside.
[2022-08-30 15:09] LABS: BASOPHILS % (AUTO) 0.1 % (0.0-2.0); EOSINOPHILS % (AUTO) 0.1 % (0.0-4.0); HEMATOCRIT 37.8 % (36-54); HEMOGLOBIN 12.3 g/dL (14.0-18.0); LYMPHOCYTES # (AUTO) 0.3 K/uL (1.0-5.5); LYMPHOCYTES % (AUTO) 2.4 % (20.5-51.5); MEAN CORPUSCULAR HEMOGLOBIN 30 pg (27-31); MEAN CORPUSCULAR HGB CONC 33 % (32-36); MEAN CORPUSCULAR VOLUME 92 fL (79.0-98.0); MONOCYTES # (AUTO) 0.4 K/uL (0.0-1.0); MONOCYTES % (AUTO) 3.6 % (1.7-9.3); NEUTROPHILS # (AUTO) 10.5 K/uL (1.8-7.7); NEUTROPHILS % (AUTO) 93.8 % (40.0-70.0); PLATELET COUNT (AUTO) 147 K/uL (130-430); RED BLOOD CELL COUNT(AUTO) 4.13 MIL/uL (4.2-6.2); RED CELL DISTRIBUTION WIDTH 13.5 % (9.0-15.0); WHITE BLOOD COUNT (AUTO) 11.1 K/uL (4.8-10.8)
[2022-08-30 15:12] LABS: CALCIUM 8.9 mg/dL (8.4-11.0); CREATININE 1.53 mg/dL (0.55-1.30)
[2022-08-30 16:11] VITALS: BP_SYST 145
--- NOTE | 2022-08-30 16:30 | NUR ---
Patient stable; resting comfortably in bed with at bedside.
--- NOTE | 2022-08-30 17:24 | NUR ---
Checked blood sugar: 394 mg/dl - will cover per sliding scale. Patient stable at this time.
--- NOTE | 2022-08-30 17:30 | NUR ---
Covered with scheduled insulin: 3 units humalog and per sliding scale: 10 units humalog.
--- NOTE | 2022-08-30 19:30 | NUR ---
Patient moving all extremities, denies any pain, and refused xray. See RIR for details.
--- NOTE | 2022-08-30 19:34 | NUR ---
PT AOX4, DENIED SOB, CP, OR ANY PAIN AT THIS TIME, NS AT 100 ONGOING TO LT HAND W/O INFILTRATION, TOLERATING DIABETIC DIET, ON MONITORING FOE FALL TODAY, STATED HE DID NOT SUSTAIN ANY INJURY, ON 2L OF OXYGEN VIA N/C, WILL CONTINUE WITH CARE PLAN
[2022-08-30 19:58] VITALS: BP_SYST 141
--- NOTE | 2022-08-30 20:00 | NUR ---
PT REFUSED HIP X-RAY AFTER POST FALL INCIDENT. RISK AND BENEFIT OF REFUSING THIS INVESTIGATION EXPLAINED TO PT, PT STILL REFUSED. DR MAC NOTIFIED, SAID OKAY
--- NOTE | 2022-08-30 21:05 | NUR ---
AT 2100, PT REFUSED HIS NOCTE MEDS INCLUDING BP MEDS LASIX, SOLU-MEDROL AND LOPRESSOR, BP AT THIS TIME WAS 142/77, HR 81. RISK AND BENEFITS OF REFUSING THESE MEDS EXPLAINED, PT CONTINUED TO REFUSE MEDS. RECEIVED LANTUS 10UNITS FOR 392 BS, NO S/S OF HYPERGLYCEMIA NOTED. WILL CONTINUE WITH PLAN OF CARE
[2022-08-30] MEDS: SENNA 8.8 MG/5 ML UDC PO SCH (21:44)
--- NOTE | 2022-08-31 00:17 | NUR ---
PT REFUSED BS CHECK AT MN, PT GOT LANTUS AT 2100 WITH BS OF 392, STATED HE DOES NOT WANT TO BE DISTURBED AT THIS TIME, RISK AND BENEFITS OF REFUSING TO CHECK BS EXPLAINED TO PT. PT CONTINUES TO REFUSE AT THIS TIME. WILL CONTINUE WITH PLAN OF CARE
[2022-08-31 00:32] VITALS: BP_SYST 129
[2022-08-31] MEDS: 0.45% NACL 1,000 ML IV SCH ×2 (01:55→12:12)
[2022-08-31] MEDS: ALBUTEROL SULFATE 0.083% 2.5 MG/3 ML VIAL.NEB INH SCH ×6 (02:37→23:11)
[2022-08-31] MEDS: IPRATROPIUM BROM 0.5 MG/2.5 ML VIAL.NEB (ATROVENT) INH SCH ×6 (02:37→23:11)
[2022-08-31] MEDS: INSULIN LISPRO SLIDING SCALE 100 UNITS/ML, 3 ML VIAL (humaLOG) SUBCUT PRN ×3 (06:28→22:07)
[2022-08-31] MEDS: INSULIN Lispro 100 UNITS/ML, 3 ML VIAL (humaLOG) SUBCUT SCH ×3 (06:28→17:22)
--- NOTE | 2022-08-31 06:41 | NUR ---
PT AOX4, EVEN AND UNLABORED BREATHING, DENIED SOB, CP OR PAIN, NS AT 100 INFUSING INTO LH W/O INFILTRATION, ON O2 2L VIA N/C, BS AT 0630 339, COVERED WITH INSULIN AND TOLERATED WELL, VOIDNG VIA URINAL, HAD BM DURING THE SHIFT, SELF TURNING IN BED, BIPAP USED DURING THE NIGHT, SAFETY PREC MAINTAINED, CALL LIGHT WITHIN EASY REACH, WILL BE ENDORSED TO INCOMNG RN
[2022-08-31 08:00] VITALS: BP_SYST 131
[2022-08-31] MEDS: METHYLPREDNISOLONE SOD SUCC 40 MG/ML VIAL IVP SCH (08:30)
[2022-08-31] MEDS: amLODIPine BESYLATE 5 MG TABLET PO SCH (08:32)
[2022-08-31] MEDS: FUROSEMIDE 20 MG/2 ML VIAL IVP SCH (08:35)
[2022-08-31] MEDS: DOCUSATE SODIUM 100 MG/10 ML UDC PO SCH (08:36)
[2022-08-31] MEDS: PANTOPRAZOLE SODIUM 40 MG/VIAL (PROTONIX) IVP SCH (08:36)
[2022-08-31] MEDS: POLYETHYLENE GLYCOL 3350, 17 GM/ POWD.PACK PO SCH (08:37)
[2022-08-31] MEDS: METOPROLOL TARTRATE 50 MG TABLET PO SCH ×2 (08:37→21:33)
[2022-08-31] MEDS: INSULIN GLARGINE 100 UNITS/ML, 10 ML VIAL SUBCUT SCH ×2 (08:37→22:05)
[2022-08-31] MEDS: ENOXAPARIN SODIUM 40 MG/0.4 ML SYRINGE SUBCUT SCH (08:38)
[2022-08-31 12:03] VITALS: BP_SYST 156
[2022-08-31 16:53] VITALS: BP_SYST 108
[2022-08-31 18:07] VITALS: BP_SYST 108
[2022-08-31] MEDS: SENNA 8.8 MG/5 ML UDC PO SCH (21:00)
[2022-09-01] VITALS (11 sets, daily range): BP systolic 104–152
[2022-09-01] MEDS: 0.45% NACL 1,000 ML IV SCH ×3 (01:18→17:00)
[2022-09-01] MEDS: ALBUTEROL SULFATE 0.083% 2.5 MG/3 ML VIAL.NEB INH SCH ×6 (03:21→22:53)
[2022-09-01] MEDS: IPRATROPIUM BROM 0.5 MG/2.5 ML VIAL.NEB (ATROVENT) INH SCH ×6 (03:21→22:53)
[2022-09-01] MEDS: INSULIN Lispro 100 UNITS/ML, 3 ML VIAL (humaLOG) SUBCUT SCH ×3 (07:05→16:59)
--- NOTE | 2022-09-01 07:33 | NUR ---
safety precaution observed,voided well urinal at bedside,all needs provided, VSS, denies pain or discomfort, tolerated bipap well, BS with insulin coverage, no signs of hypo/hyperglycemia noted, dressing to the left buttocks intact, encouraged to reposition in bed, will endorse care to oncoming RN.
[2022-09-01] MEDS: POLYETHYLENE GLYCOL 3350, 17 GM/ POWD.PACK PO SCH (08:21)
[2022-09-01] MEDS: PANTOPRAZOLE SODIUM 40 MG/VIAL (PROTONIX) IVP SCH (08:21)
[2022-09-01] MEDS: DOCUSATE SODIUM 100 MG/10 ML UDC PO SCH (08:21)
[2022-09-01] MEDS: ENOXAPARIN SODIUM 40 MG/0.4 ML SYRINGE SUBCUT SCH (08:21)
[2022-09-01] MEDS: METOPROLOL TARTRATE 50 MG TABLET PO SCH ×2 (08:22→21:00)
[2022-09-01] MEDS: amLODIPine BESYLATE 5 MG TABLET PO SCH (08:23)
[2022-09-01] MEDS ORDERED: METHYLPREDNISOLONE SOD SUCC 40 MG/ML VIAL IVP SCH (09:00)
[2022-09-01] MEDS: INSULIN GLARGINE 100 UNITS/ML, 10 ML VIAL SUBCUT SCH ×2 (09:00→21:11)
--- NOTE | 2022-09-01 19:00 | NUR ---
PATIENT HAS ORDER FOR D/C TO [facility]. АННА PELAYO CALLED AND MADE AWARE OF TRANSFER/ D/C. PATIENT ALSO MADE AWARE. NOTIFIED BOTH PATIENT AND TRANSPORTATION WILL BE ARRIVING AT 11PM BY [facility] TRANSPORT[facility].
[2022-09-01] MEDS: SENNA 8.8 MG/5 ML UDC PO SCH (21:00)
--- NOTE | 2022-09-01 21:00 | NUR ---
PATIENT HAS ORDER FOR D/C TO [facility]. PAPERWORK COMPLETED. CALLED AND GAVE REPORT TO STEPHEN CHAUDHRY AT [facility]. D/C AND MEDICATION INSTRUCTIONS GIVEN TO STEPHEN CHAUDHRY. RN VERBALIZED UNDERSTANDING OF D/C INSTRUCTIONS AND MEDICATIONS.
--- NOTE | 2022-09-01 21:00 | NUR ---
[facility] SWAB COLLECTED DUE TO PATIENT HOSPITAL STAY >21 DAYS. SPECIMEN LABELED, COLLECTED,AND SPECIMEN SENT TO LAB.
--- NOTE | 2022-09-01 21:04 | NUR ---
ISABEL SALCEDO CALLED AND GAVE TRANSPORT INFO PT WILL BE GOING TO [facility] ROOM 4 [employer]PER[employer] @2300 WITH [facility]. FOR REPORT PLEASE CALL [phone]
[2022-09-02] VITALS: BP_SYST 130
--- NOTE | 2022-09-02 00:33 | NUR ---
PATIENT PICKED UP BY [facility]. VS WNL 98.7,133/74,80,18,0/10,97% @2LPM VIA NC. PATIENT A&O X4 NO CHANGES IN LOC OR CONDITION.PATIENT STABLE AT THIS TIME.ALL MEDICATIONS GIVEN PRIOR TO D/C. IV D/C AND CATHETER INTACT. PATIENT CLEAN AND DRY. WOUND CARE DONE PRIOR TO AERIAL PHOTOGRAPH INTERPRETER. CALLED [place] S/Josh MITCHELL NOTIFIED PATIENT ON THE WAY. NOTIFIED АННА PELAYO PATIENT IS BEING TRANSPORTED. PATIENT LEFT WITH ALL BELONGINGS GLASSES, PHONE, INFORMATION CLERK AUT[employer]LE CLUB, AND CLOTHING. REPORT AND PAPERWORK PROVIDED TO EMT. REPORT AND D/C INSTRUCTIONS ALREADY GIVEN TO [facility] S/W STEPHEN CHAUDHRY. PATIENT TRANSPORTED VIA GURNEY TO [facility].
== END 2022-09-02 00:33 | DRG 720 ==
LOC: SED 12:59 → SIC 15:43 → STU 08-19 15:24 → SMU 08-22 23:06
PROVIDERS: ADMIT Specialist; ATTEND Specialist
PROC: 5A1955Z Respiratory Ventilation, Greater than 96 Consecutive Hours (ICD-10-PCS; principal; 2022-08-01)
PROC: 0D9670Z Drainage of Stomach with Drainage Device, Via Natural or Artificial Opening (ICD-10-PCS; 2022-08-01)
PROC: 0BH17EZ Insertion of Endotracheal Airway into Trachea, Via Natural or Artificial Opening (ICD-10-PCS; 2022-08-01)
PROC: 5A09357 Assistance with Respiratory Ventilation, Less than 24 Consecutive Hours, Continuous Positive Airway Pressure (ICD-10-PCS; 2022-08-05)
PROC: 5A09357 Assistance with Respiratory Ventilation, Less than 24 Consecutive Hours, Continuous Positive Airway Pressure (ICD-10-PCS; 2022-08-06)
PROC: 5A09357 Assistance with Respiratory Ventilation, Less than 24 Consecutive Hours, Continuous Positive Airway Pressure (ICD-10-PCS; 2022-08-07)
PROC: 5A09357 Assistance with Respiratory Ventilation, Less than 24 Consecutive Hours, Continuous Positive Airway Pressure (ICD-10-PCS; 2022-08-08)
PROC: 0B968ZX Drainage of Right Lower Lobe Bronchus, Via Natural or Artificial Opening Endoscopic, Diagnostic (ICD-10-PCS; 2022-08-09)
PROC: 0B948ZX Drainage of Right Upper Lobe Bronchus, Via Natural or Artificial Opening Endoscopic, Diagnostic (ICD-10-PCS; 2022-08-09)
PROC: 0B958ZX Drainage of Right Middle Lobe Bronchus, Via Natural or Artificial Opening Endoscopic, Diagnostic (ICD-10-PCS; 2022-08-09)
PROC: 0B998ZX Drainage of Lingula Bronchus, Via Natural or Artificial Opening Endoscopic, Diagnostic (ICD-10-PCS; 2022-08-09)
PROC: 0BB78ZX Excision of Left Main Bronchus, Via Natural or Artificial Opening Endoscopic, Diagnostic (ICD-10-PCS; 2022-08-09)
PROC: 5A09357 Assistance with Respiratory Ventilation, Less than 24 Consecutive Hours, Continuous Positive Airway Pressure (ICD-10-PCS; 2022-08-09)
PROC: 0BJ08ZZ Inspection of Tracheobronchial Tree, Via Natural or Artificial Opening Endoscopic (ICD-10-PCS; 2022-08-09)
PROC: 5A09357 Assistance with Respiratory Ventilation, Less than 24 Consecutive Hours, Continuous Positive Airway Pressure (ICD-10-PCS; 2022-08-18)
PROC: 5A09357 Assistance with Respiratory Ventilation, Less than 24 Consecutive Hours, Continuous Positive Airway Pressure (ICD-10-PCS; 2022-08-20)
PROC: 5A09357 Assistance with Respiratory Ventilation, Less than 24 Consecutive Hours, Continuous Positive Airway Pressure (ICD-10-PCS; 2022-08-21)
PROC: 5A09357 Assistance with Respiratory Ventilation, Less than 24 Consecutive Hours, Continuous Positive Airway Pressure (ICD-10-PCS; 2022-08-23)
PROC: 5A09357 Assistance with Respiratory Ventilation, Less than 24 Consecutive Hours, Continuous Positive Airway Pressure (ICD-10-PCS; 2022-08-24)
PROC: 5A09357 Assistance with Respiratory Ventilation, Less than 24 Consecutive Hours, Continuous Positive Airway Pressure (ICD-10-PCS; 2022-08-25)
PROC: 5A09357 Assistance with Respiratory Ventilation, Less than 24 Consecutive Hours, Continuous Positive Airway Pressure (ICD-10-PCS; 2022-08-26)
PROC: 5A09357 Assistance with Respiratory Ventilation, Less than 24 Consecutive Hours, Continuous Positive Airway Pressure (ICD-10-PCS; 2022-08-27)
PROC: 5A09357 Assistance with Respiratory Ventilation, Less than 24 Consecutive Hours, Continuous Positive Airway Pressure (ICD-10-PCS; 2022-08-28)
PROC: 5A09357 Assistance with Respiratory Ventilation, Less than 24 Consecutive Hours, Continuous Positive Airway Pressure (ICD-10-PCS; 2022-08-29)
PROC: 5A09357 Assistance with Respiratory Ventilation, Less than 24 Consecutive Hours, Continuous Positive Airway Pressure (ICD-10-PCS; 2022-08-30)
PROC: 5A09357 Assistance with Respiratory Ventilation, Less than 24 Consecutive Hours, Continuous Positive Airway Pressure (ICD-10-PCS; 2022-08-31)
PROC: 5A09357 Assistance with Respiratory Ventilation, Less than 24 Consecutive Hours, Continuous Positive Airway Pressure (ICD-10-PCS; 2022-09-01)
DX: A41.9 Sepsis, unspecified organism (principal); J96.21 Acute and chronic respiratory failure with hypoxia; N17.0 Acute kidney failure with tubular necrosis; R65.21 Severe sepsis with septic shock; I50.43 Acute on chronic combined systolic (congestive) and diastolic (congestive) heart failure; D69.6 Thrombocytopenia, unspecified; E83.41 Hypermagnesemia; J18.9 Pneumonia, unspecified organism; E83.51 Hypocalcemia; E87.0 Hyperosmolality and hypernatremia; J44.0 Chronic obstructive pulmonary disease with (acute) lower respiratory infection; E66.01 Morbid (severe) obesity due to excess calories; I25.10 Atherosclerotic heart disease of native coronary artery without angina pectoris; E78.5 Hyperlipidemia, unspecified; G47.33 Obstructive sleep apnea (adult) (pediatric); R13.10 Dysphagia, unspecified; J44.1 Chronic obstructive pulmonary disease with (acute) exacerbation; Z20.822 Contact with and (suspected) exposure to COVID-19; D64.9 Anemia, unspecified; J96.22 Acute and chronic respiratory failure with hypercapnia; Z68.42 Body mass index [BMI] 45.0-49.9, adult; Z99.11 Dependence on respirator [ventilator] status; Z79.899 Other long term (current) drug therapy
CPT/HCPCS: 36415; 36600; 70450-TC; 71045; 74018; 76376; 80048; 80053; 81000; 82140; 82803-TC; 82962; 83037; 83605; 83735; 83880; 84100; 84484; 85025; 85610-TC; 85651-TC; 85730-TC; 86140; 87040; 87070-TC; 87081; 87205-TC; 92610-GN; 93005; 94002; 94003; 94640; 94660; 94760; 96361; 96365; 96367; 96375; 97110-GP; 97112-GP; 97116-GP; 97530-GP; 99291; 99292; C9113; G0378; J0360; J0456; J0696; J1030; J1120; J1650; J1815; J1940; J2060; J2543; J2704; J2930; J3490; J7050; J7060; J7613; P9046